=== PATIENT | male | born 1975 | race Hispanic/Latino ===

== ENCOUNTER 2016-12-26 14:51 | Emergency (ER) | payer SELFPAY ==
[~2016-12-26] VITALS: Ht 170.2 cm; Wt 120.0 kg
[~2016-12-26 14:51] MED LIST: AMOXICILLIN500 MG PO; ASPIRIN CHEWABL81 MG PO; CLARITIN10 M1 PO; NITROSTAT0.4 MG SL; NO; TYLENOL # 31 TAB PO; ULTRAM50 M1 PO; ZANTAC150 M1 PO; ZPAK PO
[2016-12-26 15:44] LABS: HEMATOCRIT 47.2 % (39.0-50.0); HEMOGLOBIN 15.6 g/dl (14.0-18.0); IMMATURE GRANULOCYTES 0.4 % (0.0-1.0); MEAN CELL VOLUME 87.9 fL CALC (80.0-100.0); MEAN CORPUSCULAR HGB 29.1 pG CALC (26.0-32.0); MEAN CORPUSCULAR HGB CONC 33.1 g/L CALC (32.0-36.0); NEUT# 4.41 thou/uL (1.82-7.42); RED BLOOD COUNT 5.37 mill/uL (4.70-6.10); RED CELL DISTRI WIDTH 13.1 % (11.5-15.5)
[2016-12-26 15:58] LABS: INTERNATIONAL NORMALIZED RATIO 0.9 RATIO (0.7-1.3); PROTHROMBIN TIME 10.1 SECONDS (9.0-12.5)
[2016-12-26 15:59] LABS: ALBUMIN 4.6 g/dL (3.2-5.0); ALKALINE PHOSPHATASE 132 u/l (38-126); ANION GAP 16 (6-22 (CALC)); BILIRUBIN, TOTAL 0.7 mg/dL (0.0-1.4); BUN 14 mg/dL (9-20); BUN/CREATININE RATIO 15 (12-20 (CALC)); CALCIUM 9.4 mg/dL (8.4-10.2); CARBON DIOXIDE 25 mmol/l (22-30); CHLORIDE 103 mmol/l (95-108); CREATININE 0.9 mg/dL (0.7-1.3); GFR > 60 ML/MIN (>=60 (CALC)); GFR FOR AFR.AMER. > 60 ML/MIN (>=60 (CALC)); GLUCOSE 89 mg/dL (75-110); POTASSIUM 4.2 mmol/l (3.5-5.1); SGOT/AST 26 u/l (17-59); SGPT/ALT 58 u/l (21-72); SODIUM 140 mmol/l (137-146); TOTAL PROTEIN 7.6 g/dL (6.3-8.2)
[2016-12-26 16:10] LABS: MYOGLOBIN 27 ng/mL (0 - 121)
[2016-12-26 17:40] VITALS: BP 117/76
== END 2016-12-26 17:32 | disposition short-term general hospital (02) | DRG 74 ==
LOC: ED 14:51
PROVIDERS: Emergency Medicine
DX: G51.0 Bell's palsy (principal); F17.210 Nicotine dependence, cigarettes, uncomplicated; R53.1 Weakness; Q07.00 Arnold-Chiari syndrome without spina bifida or hydrocephalus; R94.31 Abnormal electrocardiogram [ECG] [EKG]

== ENCOUNTER 2017-05-26 03:17 | Inpatient (IN) | payer SELFPAY ==
[2017-05-26] VITALS (8 sets, daily range): BP systolic 92–118; BP diastolic 47–66
[~2017-05-26] VITALS: Ht 170.2 cm; Wt 117.0 kg
--- NOTE | 2017-05-26 03:20 | NUR ---
PT TO RM 14 VIA EMS
[2017-05-26 03:52] LABS: HEMATOCRIT 46.5 % (39.0-50.0); HEMOGLOBIN 15.8 g/dl (14.0-18.0); IMMATURE GRANULOCYTES 0.4 % (0.0-1.0); MEAN CELL VOLUME 88.7 fL CALC (80.0-100.0); MEAN CORPUSCULAR HGB 30.2 pG CALC (26.0-32.0); NEUT# 10.93 thou/uL (1.82-7.42); RED BLOOD COUNT 5.24 mill/uL (4.70-6.10); RED CELL DISTRI WIDTH 12.9 % (11.5-15.5)
[2017-05-26 04:05] LABS: ALBUMIN 4.5 g/dL (3.2-5.0); ALKALINE PHOSPHATASE 128 u/l (38-126); AMYLASE 47 u/l (30-110); ANION GAP 18 (6-22 (CALC)); BILIRUBIN, TOTAL 0.7 mg/dL (0.0-1.4); BUN 14 mg/dL (9-20); BUN/CREATININE RATIO 16 (12-20 (CALC)); CALCIUM 9.2 mg/dL (8.4-10.2); CARBON DIOXIDE 20 mmol/l (22-30); CHLORIDE 109 mmol/l (95-108); CREATININE 0.9 mg/dL (0.7-1.3); GFR > 60 ML/MIN (>=60 (CALC)); GFR FOR AFR.AMER. > 60 ML/MIN (>=60 (CALC)); GLUCOSE 103 mg/dL (75-110); LIPASE 77 u/l (23-300); POTASSIUM 3.8 mmol/l (3.5-5.1); SGOT/AST 27 u/l (17-59); SGPT/ALT 82 u/l (21-72); SODIUM 142 mmol/l (137-146); TOTAL PROTEIN 7.4 g/dL (6.3-8.2)
--- NOTE | 2017-05-26 04:05 | NUR ---
PT ASKED ME TO CALL HIS FIANCE FOR HIM AND GAVE PERMISSION TO GIVE ALL INFORMATION TO RICHY.
--- NOTE | 2017-05-26 05:05 | NUR ---
DR JI IN TO GO OVER RESULTS AND PLAN OF ADMIT.
--- NOTE | 2017-05-26 05:34 | NUR ---
Admission Note Report Given to: GREYSON ALVARENGA. Transported by: X Wheelchair Stretcher Transported with: X Nurse Transporter X Patent IV O2 Health Information Administrator
--- NOTE | 2017-05-26 06:41 | NUR ---
PATIENT ADMITTED FROM ER VIA STRETCHER WITH ER STAFFIN ATTENDANCE. PATIENT STANDING ON FOR WEIGHT AND THEN ASSISTED TO BED. PATIENT IS AWAKE ALERT AND ORIENTEDX3-ADMITTED FOR ACUTE APPY. PATIENT WITH IV SITE TO LEFT AC WITH IVF NS PATENT AND INFUSING AT 200CC/HR. SITE APPEARS HEALTHY AT THIS TIME. PATIENT INSTRUCTED ON NPO STATUS WELL THE NEED FOR U/A WHEN HE CAN PROVIDE. PATIENT STATES THAT HE CANNOT VOID AT THIS TIME. PATIENT WITH RLQ ABD PAIN-MEDICATED FOR PAIN-9/10 ON PAIN SCALE WITH DILAUDID 1MG IVP. PATIENT DENIES ANY N/V AT THIS TIME. PATIENT STATES THAT HIS LAST BM WAS LAST NIGHT. LIVES WITH S/O. ORIENTED TO ROOM AND SURROUNDINGS. INSTRUCTED ON USE OF NURSE CALL LIGHT SYSTEM AND TV REMOTE. SAFETY PRECAUTIONS REVIEWED WITH PATIENT. CALL LIGHT IN REACH. WILL CONT TO MONITOR.
--- NOTE | 2017-05-26 07:05 | NUR ---
PT ON THE PHONE; DENIES PAIN AT THIS TIME; IVF INFUSING WELL; CALL PENA WITHIN REACH; WILL CONTINUE TO MONITOR.
--- NOTE | 2017-05-26 08:05 | NUR ---
PT A/O X3; RLQ ABD TENDER WITH PALPATATION; PT INSTRUCTED ON NPO STATUS, VERBALIZE UNDERSTANDING OF SAME; CALL PENA WITHIN REACH; WILL CONTINUE TO MONITOR.
[2017-05-26 08:09] LABS: URINE BILIRUBIN - DIPSTICK NEGATIVE (NEGATIVE); URINE BLOOD DIPSTICK NEGATIVE (NEGATIVE); URINE CLARITY CLEAR; URINE COLOR YELLOW; URINE GLUCOSE - DIPSTICK NEGATIVE (NEGATIVE); URINE KETONE NEGATIVE (NEGATIVE); URINE LEUK ESTERASE NEGATIVE (NEGATIVE); URINE NITRITE - DIPSTICK NEGATIVE (Negative); URINE PH 5.5 (4.5-8.0); URINE PROTEIN - DIPSTICK NEGATIVE (NEG-TRACE); URINE SPECIFIC GRAVITY 1.015; URINE UROBILINOGEN - DIPSTICK 0.2 E.U./dL (0.2)
--- NOTE | 2017-05-26 09:45 | NUR ---
RECEIVED BEDSIDE REPORT FROM ADELITA RUBI. PT RESTING IN SEMI FOWLERS. RESPS EVEN AND UNLABORED ON ROOM AIR. MEDICATED FOR ABD PAIN BY ADELITA RUBI. CALL LIGHT WITHIN REACH.
--- NOTE | 2017-05-26 10:51 | NUR ---
TO OR VIA STRETCHER ACCOMPANIED BY JOE RUBI AND TOYIN RUBI.
--- NOTE | 2017-05-26 14:40 | NUR ---
FROM OR VIA STRETCHER ACCOMPANIED BY JOE RUBI. TRANSFERRED TO BED WITH STAND BY ASSIST. RESPS EVEN AND UNLABORED ON ROOM AIR. #20 LAC INFUSING WITHOUT DIFFICULTY, SITE APPEARS HEALTHY. SCD'S TO BILAT LOWER EXTREMITIES. DRESSINGS X3 TO ABD CDI. DENIES PAIN OR DISCOMFORT. ICE CHIPS PROVIDED. ORIENTED TO ROOM AND CALL SYSTEM. SAFETY PRECAUTIONS REINFORCED. BED IN LOWEST POSITION WITH WHEELS LOCKED. CALL LIGHT WITHIN REACH. FAMILY MEMBER AT BEDSIDE. ENCOURAGED PT AND FAMILY TO CALL FOR ANY NEEDS.
--- NOTE | 2017-05-26 16:10 | NUR ---
RESTING IN SEMI FOWLERS, FAMILY AT BEDSIDE. MEDIATED WITH DILAUDID 1MG IVP FOR C/O 8/10 ABD PAIN. HYPOACTIVE BOWEL SOUNDS NOTED X4 QUADS. SCD'S TO BILAT LOWER EXTREMITIES. CALL LIGHT WITHIN REACH. WILL CONTINUE TO MONITOR.
--- NOTE | 2017-05-26 17:10 | NUR ---
MEDICATED WITH ZOFRAN 4MG IVP FOR C/O NAUSEA. FAMILY AT BEDSIDE, CALL LIGHT WITHIN REACH.
--- NOTE | 2017-05-26 18:45 | NUR ---
AMBULATED IN HALLWAY WITH STEADY GAIT. TOLERATED WELL.
--- NOTE | 2017-05-26 19:16 | NUR ---
Discharge instructions given. Patient verbalizes understanding of same. Discharged in stable condition via Wheelchair to Home with family. All belongings sent with pt.
== END 2017-05-26 19:15 | disposition home or self-care (01) | DRG 343 ==
LOC: ED 03:17 → ED-I 04:10 → ED 04:10 → ED-I 04:40 → ED 05:14 → MS2 05:15
PROVIDERS: Emergency Medicine; ADMIT Surgery; ATTEND Surgery
PROC: 0DTJ4ZZ Resection of Appendix, Percutaneous Endoscopic Approach (ICD-10-PCS; principal; 2017-05-26)
DX: K35.80 Unspecified acute appendicitis (principal); F17.210 Nicotine dependence, cigarettes, uncomplicated; Q07.00 Arnold-Chiari syndrome without spina bifida or hydrocephalus; Z87.442 Personal history of urinary calculi
CPT/HCPCS: Q9967

== ENCOUNTER 2017-11-30 11:05 | Emergency (ER) | payer OTHER ==
[~2017-11-30] VITALS: Ht 170.2 cm; Wt 116.4 kg
[2017-11-30 11:52] LABS: URINE BILIRUBIN - DIPSTICK NEGATIVE (NEGATIVE); URINE CLARITY CLEAR; URINE COLOR YELLOW; URINE GLUCOSE - DIPSTICK NEGATIVE (NEGATIVE); URINE KETONE NEGATIVE (NEGATIVE); URINE LEUK ESTERASE NEGATIVE (NEGATIVE); URINE NITRITE - DIPSTICK NEGATIVE (Negative); URINE PROTEIN - DIPSTICK NEGATIVE (NEG-TRACE); URINE SPECIFIC GRAVITY <=1.005; URINE UROBILINOGEN - DIPSTICK 0.2 E.U./dL (0.2)
[2017-11-30 11:54] LABS: COCAINE NEGATIVE (NEGATIVE); METHADONE NEGATIVE (NEGATIVE); TETRAHYDROCANNABIONOL NEGATIVE (NEGATIVE); TRICYLIC ANTIDEPRESSANTS NEGATIVE (NEGATIVE); URINE BLOOD DIPSTICK NEGATIVE (NEGATIVE)
[2017-11-30 11:55] LABS: BARBITURATES NEGATIVE (NEGATIVE); OXCYCODONE NEGATIVE (NEGATIVE)
[2017-11-30 12:01] LABS: HEMATOCRIT 47.9 % (39.0-50.0); HEMOGLOBIN 15.9 g/dl (14.0-18.0); IMMATURE GRANULOCYTES 0.4 % (0.0-1.0); MEAN CELL VOLUME 90.5 fL CALC (80.0-100.0); MEAN CORPUSCULAR HGB 30.1 pG CALC (26.0-32.0); MEAN CORPUSCULAR HGB CONC 33.2 g/L CALC (32.0-36.0); NEUT# 5.74 thou/uL (1.82-7.42); RED BLOOD COUNT 5.29 mill/uL (4.70-6.10); RED CELL DISTRI WIDTH 12.4 % (11.5-15.5)
[2017-11-30 12:16] LABS: ALBUMIN 4.4 g/dL (3.2-5.0); ALKALINE PHOSPHATASE 151 u/l (38-126); ANION GAP 18 (6-22 (CALC)); BILIRUBIN, TOTAL 0.6 mg/dL (0.0-1.4); BUN 15 mg/dL (9-20); BUN/CREATININE RATIO 17 (12-20 (CALC)); CARBON DIOXIDE 24 mmol/l (22-30); CHLORIDE 104 mmol/l (95-108); CREATININE 0.9 mg/dL (0.7-1.3); GFR > 60 ML/MIN (>=60 (CALC)); GFR FOR AFR.AMER. > 60 ML/MIN (>=60 (CALC)); POTASSIUM 4.2 mmol/l (3.5-5.1); SGOT/AST 45 u/l (17-59); SGPT/ALT 60 u/l (21-72); SODIUM 142 mmol/l (137-146); TOTAL PROTEIN 7.5 g/dL (6.3-8.2)
[2017-11-30 12:26] LABS: MYOGLOBIN 31 ng/mL (0 - 121)
[2017-11-30] MEDS ORDERED: NAPROSYN500 MG PO (17:04)
[2017-11-30 17:33] VITALS: BP 121/68
== END 2017-11-30 17:34 | disposition home or self-care (01) | DRG 313 ==
LOC: ED 11:05
PROVIDERS: Emergency Medicine
DX: R07.89 Other chest pain (principal); F17.210 Nicotine dependence, cigarettes, uncomplicated; Q07.00 Arnold-Chiari syndrome without spina bifida or hydrocephalus

== ENCOUNTER 2018-01-27 08:46 | Observation (INO) | payer OTHER ==
[~2018-01-27] VITALS: Ht 170.2 cm; Wt 123.2 kg
[~2018-01-27 08:46] MED LIST changes: +NAPROSYN500 MG PO
--- NOTE | 2018-01-27 08:48 | NUR ---
PT DIRECTLY TO ROOM WITH A STEADY GAIT. PT REPORTS 8/10 LEFT SIDED CHEST PAIN WHILE COMPLETING RESTING STRESS TEST. MD NOTIFIED OF PT STATUS.
[2018-01-27] MEDS ORDERED: ADULT ASPIRIN R81 MG PO (08:59)
[2018-01-27 09:04] LABS: HEMATOCRIT 48.7 % (39.0-50.0); HEMOGLOBIN 16.3 g/dl (14.0-18.0); IMMATURE GRANULOCYTES 0.2 % (0.0-1.0); MEAN CELL VOLUME 90.5 fL CALC (80.0-100.0); MEAN CORPUSCULAR HGB 30.3 pG CALC (26.0-32.0); MEAN CORPUSCULAR HGB CONC 33.5 g/L CALC (32.0-36.0); NEUT# 4.46 thou/uL (1.82-7.42); RED BLOOD COUNT 5.38 mill/uL (4.70-6.10); RED CELL DISTRI WIDTH 12.8 % (11.5-15.5)
[2018-01-27 09:20] LABS: ALBUMIN 4.4 g/dL (3.2-5.0); ALKALINE PHOSPHATASE 125 u/l (38-126); ANION GAP 14 (6-22 (CALC)); BILIRUBIN, TOTAL 0.7 mg/dL (0.0-1.4); BUN 14 mg/dL (9-20); BUN/CREATININE RATIO 16 (12-20 (CALC)); CARBON DIOXIDE 26 mmol/l (22-30); CHLORIDE 104 mmol/l (95-108); CREATININE 0.9 mg/dL (0.7-1.3); GFR > 60 ML/MIN (>=60 (CALC)); GFR FOR AFR.AMER. > 60 ML/MIN (>=60 (CALC)); SGOT/AST 39 u/l (17-59); SGPT/ALT 83 u/l (21-72); SODIUM 141 mmol/l (137-146); TOTAL PROTEIN 7.8 g/dL (6.3-8.2)
[2018-01-27 09:32] LABS: MYOGLOBIN 50 ng/mL (0 - 121)
--- NOTE | 2018-01-27 09:35 | NUR ---
PATIENT RATES CHEST PAIN 6/10. REPORTS HEADACHE, MD INFORMED. AWAITING ORDERS.
--- NOTE | 2018-01-27 09:43 | NUR ---
PATIENT AMBULATES TO BATHROOM WITH STEADY GAIT.
--- NOTE | 2018-01-27 10:09 | NUR ---
MD AT BEDSIDE TO DISCUSS RESULTS AND PLAN OF CARE.
--- NOTE | 2018-01-27 10:13 | NUR ---
PATIENT REPORTS HEAD ACHE AND CHEST PAIN 6/10 AT THIS TIME. ORANGE JUICE PROVIDED PER PATIENT REQUEST.
--- NOTE | 2018-01-27 10:37 | NUR ---
ATTEMPT MADE TO CALL REPORT. SPOKE TO NILDA [facility] NURSE IN PATIENT ROOM WILL HAVE NURSE CALL FOR REPORT.
--- NOTE | 2018-01-27 11:02 | NUR ---
ATTEMPT MADE TO CALL REPORT SPOKE TO NILDA REPORTS NURSE WITH PATIENT. WILL CALL BACK.
--- NOTE | 2018-01-27 11:10 | NUR ---
PATIENT REPORTS CHEST PAIN AND HEADACHE 4/10 AT THIS TIME. UPDATED ON WAIT TIME, VERBAL UNDERSTANDING, SO AT BEDSIDE.
--- NOTE | 2018-01-27 11:18 | NUR ---
REPORT GIVEN TO GREYSON PORRAS.
--- NOTE | 2018-01-27 11:25 | NUR ---
PT ARRIVED TO FLOOR VIA STRETCHER ACCOMPANIED BY GREYSON DESAI. PT'S FIANCE PRESENT. PT AMBULATES W/ STEADY GAIT. REPORTS CHEST PAIN, LEFT SIDED, 4 ON SCALE OF 0-10. IMPROVED SINCE MEDICATION IN ED. PAIN WORSE WHEN LAYING FLAT, ACCOMPANIED BY SOB. O2 @ 2L VIA NC APPLIED. PLAN OF CARE DISCUSSED. REPORTING OF CONCERNS ENCOURAGED. CALL LIGHT REVIEWED AND IN REACH.
--- NOTE | 2018-01-27 11:25 | NUR ---
PATIENT TRANSPORTED TO [facility] WITH TELE VIA STRETCHER. BEDSIDE REPORT GIVEN TO GREYSON PORRAS. CARE RELINQUISHED.
[2018-01-27 11:39] VITALS: BP 102/69
[2018-01-27 16:17] VITALS: BP 96/62
[2018-01-27 19:10] VITALS: BP 123/63
--- NOTE | 2018-01-27 20:00 | NUR ---
BEDSIDE REPORT RECEIVED FROM GREYSON PORRAS. PT RESTING IN BED ON LEFT SIDE WITH FAMILY AT BEDSIDE. C/O LEFT CHEST PAIN 11/27 CURRENTLY; NO CHANGE OR WORSENING SINCE EARLIER. RESPIRATIONS EVEN AND UNLABORED ON OXYGEN VIA NC. TELE ON. PLAN OF CARE DISCUSSED. PT ENCOURAGED TO VERBALZIE CONCERNS. STATES UNDERSTANDING. SAFETY MEASURES IN PLACE. CALL LIGHT WITHIN REACH.
[2018-01-28 00:04] VITALS: BP 94/59
--- NOTE | 2018-01-28 00:31 | NUR ---
PT ASLEEP AT THIS TIME WITH NO SIGNS OF DISTRESS. ONE FAMILY MEMBER REMAINS AT BEDSIDE. RESPIRATIONS EVEN AND UNLABORED ON ROOM AIR; REMOVED OXYGEN AND SATURATION REMAINS ABOVE 90%. IV SITE APPEARS HEALTHY AND FLUSHES. INDPENDENT IN ROOM. SAFETY MEASURES IN PLACE. CALL LIGHT WITHIN REACH.
[2018-01-28 04:10] VITALS: BP 101/51
--- NOTE | 2018-01-28 04:22 | NUR ---
PT ASLEEP AT THIS TIME WITH NO SIGNS OF DISTRESS. NO ACUTE CHANGES IN CONDITION THROUGHOUT THE NIGHT OR WORSENING OF CHEST PAIN. SAFETY MEASURES IN PLACE. CALL LIGHT WITHIN REACH.
--- NOTE | 2018-01-28 07:00 | NUR ---
RECEIVED BEDSIDE REPORT FROM TEVIN RUBI. AMBULATED TO BATHROOM WITH STEADY GAIT. RESPS EVEN AND UNLABORED ON ROOM AIR, TELE MONITOR IN PLACE. DENIES PAIN OR DISCOMFORT. PLAN OF CARE DISCUSSED. SAFETY PRECAUTIONS REINFORCED. VISITOR AT BEDSIDE. BED IN LOWEST POSITION WITH WHEELS LOCKED. CALL LIGHT WITHIN REACH. ENCOURAGED PT AND VISITOR TO CALL FOR ANY NEEDS.
[2018-01-28 07:20] VITALS: BP 105/73
[2018-01-28 10:32] LABS: CHOLESTEROL HDL RATIO 5.7 (<4.4 (CALC))
[2018-01-28 11:18] VITALS: BP 124/75
--- NOTE | 2018-01-28 12:00 | NUR ---
SITTING ON EDGE OF BED, RESPS EVEN AND UNLABORED ON ROOM AIR, TELE MONITOR IN PLACE. DENIES PAIN OR DISCOMFORT. FAMILY AT BEDSIDE. CALL LIGHT WITHIN REACH. ENCOURAGED PT OR FAMILY TO CALL FOR ANY NEEDS.
[2018-01-28 15:40] VITALS: BP 99/54
--- NOTE | 2018-01-28 16:52 | NUR ---
IV site discontinued, cath intact. No edema , no redness, voices no discomfort.
--- NOTE | 2018-01-28 17:01 | NUR ---
Discharge instructions given. Patient verbalizes understanding of same. Discharged in stable condition via Wheelchair to Home with family. All belongings sent with pt.
== END 2018-01-28 16:57 | disposition home or self-care (01) | DRG 313 ==
LOC: ED 08:46 → ED-I 09:50 → ED 10:05 → MS2 10:06
PROVIDERS: Family Medicine; Nurse Practitioner Family; ADMIT Internal Medicine; ATTEND Internal Medicine
DX: R07.89 Other chest pain (principal); G93.5 Compression of brain; Z68.41 Body mass index [BMI] 40.0-44.9, adult; F17.210 Nicotine dependence, cigarettes, uncomplicated; K21.9 Gastro-esophageal reflux disease without esophagitis; M94.0 Chondrocostal junction syndrome [Tietze]; Z87.442 Personal history of urinary calculi
CPT/HCPCS: A9502; G0378

== ENCOUNTER 2018-03-18 20:41 | Emergency (ER) | payer OTHER ==
[~2018-03-18 20:41] MED LIST changes: +ADULT ASPIRIN R81 MG PO
== END 2018-03-18 21:25 | disposition left against medical advice (07) | DRG 951 ==
LOC: ED 20:41 → LWOBS 21:25
DX: Z91.19 Patient's noncompliance with other medical treatment and regimen (principal)

== ENCOUNTER 2018-06-15 18:35 | Observation (INO) | payer OTHER ==
[~2018-06-15] VITALS: Ht 170.2 cm; Wt 121.8 kg
[2018-06-15] MEDS ORDERED: CHOLESTEROL PILL (18:48)
--- NOTE | 2018-06-15 18:48 | NUR ---
AMB TO ROOM 12 WITH STEADY GAIT.
--- NOTE | 2018-06-15 19:04 | NUR ---
XRAYS COMPLETED. VISITOR AT BEDSIDE
[2018-06-15 19:23] LABS: URINE BILIRUBIN - DIPSTICK NEGATIVE (NEGATIVE); URINE BLOOD DIPSTICK NEGATIVE (NEGATIVE); URINE COLOR YELLOW; URINE GLUCOSE - DIPSTICK NEGATIVE (NEGATIVE); URINE KETONE NEGATIVE (NEGATIVE); URINE LEUK ESTERASE NEGATIVE (NEGATIVE); URINE NITRITE - DIPSTICK NEGATIVE (Negative); URINE PROTEIN - DIPSTICK TRACE mg/dL (NEG-TRACE); URINE SPECIFIC GRAVITY >=1.030
[2018-06-15 19:24] LABS: URINE CLARITY CLEAR
[2018-06-15 19:27] LABS: BARBITURATES NEGATIVE (NEGATIVE); COCAINE NEGATIVE (NEGATIVE); HEMOGLOBIN 15.8 g/dl (14.0-18.0); IMMATURE GRANULOCYTES 0.4 % (0.0-5.0); MEAN CELL VOLUME 90.4 fL CALC (80.0-100.0); MEAN CORPUSCULAR HGB 30.4 pG CALC (26.0-32.0); MEAN CORPUSCULAR HGB CONC 33.6 g/L CALC (32.0-36.0); METHADONE NEGATIVE (NEGATIVE); NEUT# 5.24 thou/uL (1.82-7.42); OXCYCODONE NEGATIVE (NEGATIVE); RED BLOOD COUNT 5.2 mill/uL (4.70-6.10); RED CELL DISTRI WIDTH 12.8 % (11.5-15.5); TETRAHYDROCANNABIONOL NEGATIVE (NEGATIVE); TRICYLIC ANTIDEPRESSANTS NEGATIVE (NEGATIVE)
[2018-06-15 19:44] LABS: ALBUMIN 4.7 g/dL (3.2-5.0); ALKALINE PHOSPHATASE 149 u/l (38-126); ANION GAP 18 (6-22 (CALC)); BILIRUBIN, TOTAL 0.6 mg/dL (0.0-1.4); BUN 16 mg/dL (9-20); BUN/CREATININE RATIO 17 (12-20 (CALC)); CARBON DIOXIDE 22 mmol/l (22-30); CHLORIDE 109 mmol/l (95-108); CREATININE 0.9 mg/dL (0.7-1.3); GFR > 60 ML/MIN (>=60 (CALC)); GFR FOR AFR.AMER. > 60 ML/MIN (>=60 (CALC)); POTASSIUM 3.5 mmol/l (3.5-5.1); SGOT/AST 36 u/l (17-59); SGPT/ALT 73 u/l (21-72); SODIUM 145 mmol/l (137-146)
[2018-06-15 19:54] LABS: MYOGLOBIN 45 ng/mL (0 - 121)
--- NOTE | 2018-06-15 20:30 | NUR ---
PT RESTING. VSS. ADVISED OF WAIT TIME. IS CALLING TO BRING HIM FOOD.
--- NOTE | 2018-06-15 21:23 | NUR ---
REPORT TO GREYSON ABARCA ON MED SURG. PT RESTING. VSS. NAD. AT BEDSIDE. PT EATING FOOD BROUGHT IN BY .
[2018-06-15 21:40] VITALS: BP 119/76
--- NOTE | 2018-06-15 21:40 | NUR ---
PT ARRIVED TO UNIT VIA STRETCHER WITH ER STAFF. AMBULATED TO BED INDEPENDENTLY. FAMILY AT BEDSIDE. C/O LEFT SIDED INTERMITTENT CHEST PAIN 02/27. RESPIRATIONS EVEN AND UNLABORED ON ROOM AIR. VS STABLE. ORIENTED TO ROOM AND CALL LIGHT SYSTEM. PLAN OF CARE DISCUSSED. PT ENCOURAGED TO VERABLIZE CONCERNS. STATES UNDERSTANDING. SAFETY MEASURES IN PLACE. CALL LIGHT WITHIN REACH.
[2018-06-15] MEDS ORDERED: LIPITOR40 M1 PO (23:14)
[2018-06-16 00:01] VITALS: BP 129/75
--- NOTE | 2018-06-16 00:27 | NUR ---
PT [id number] THAT HIS CHEST PAIN HAD INCREASED TO AN 8/10 AND HE APPEARS MORE ANXIOUS. NOTIFED. NEW ORDERS FOR TORADOL X 1 AND ATIVAN PO X 1; MEDICATIONS ADMINISTERED WITH GOOD EFFECT. PT STATES THAT THE CHEST PAIN IS BACK TO A 6/10 AND NOT SHARP. HE SEEMS MORE RELAXED. BLOOD PRESSURE WNL. ONLY REQUEST AT THIS TIME IS FOR MORE PILLOWS. IV SITE APPEARS HEALTHY AND FLUSHES. PT IS INDEPENDENT IN ROOM. SAFETY MEASURES IN PLACE. CALL LIGHT WITHIN REACH.
[2018-06-16 03:51] VITALS: BP 97/66
--- NOTE | 2018-06-16 03:54 | NUR ---
PT ASLEEP AT THIS TIME WITH NO SIGNS OF DISTRESS. RESPIRATIONS EVEN AND UNLABORED ON ROOM AIR. CALL LIGHT WITHIN REACH.
--- NOTE | 2018-06-16 07:20 | NUR ---
REPORT RECEIVED FROM GREYSON ABARCA;PT APPEARS TO BE SLEEPING IN SEMI FOWLERS POSITION;NO S/S OF DISTRESS NOTED;RESPIRATIONS APPEAR EVEN AND UNLABORED ON RA;TELE MONITOR IN PLACE;FALL PRECAUTIONS NOTED WITH BED IN THE LOWEST POSITION AND CALL LIGHT IN REACH;WILL CONTINUE TO MONITOR
--- NOTE | 2018-06-16 09:15 | NUR ---
PT RESTING IN SEMI FOWLERS POSITION;ALERT AND ORIENTED X3;PT REPORTS MINIMAL LEFT SIDED CHEST DISCOMFORT,ENCOURAGED REPOSITION;PAIN SCALE AND REPORTING EDUCATED;VS OBTAINED AND ASSESSMENT COMPLETED;RESPIRATIONS EVEN AND UNLABORED ON RA,CLEAR LUNG SOUNDS NOTED;ABDOMEN DISTENDED/SOFT ON PALPATION AND ACTIVE IN ALL 4 QUADRANTS;SKIN INTACT;TELE MONITOR IN PLACE;#20G TO RAC FLUSHED AND PATENT,SITE APPEARS HEALTHY;GIO EVELIO PROVIDED PER REQUEST;PT DENIES ANY ADDITONAL NEEDS AT THIS TIME AND IS INSTRUCTED TO CALL FOR ASSISTANCE IF NEEDED;CALL LIGHT IN REACH;WILL CONTINUE TO MONITOR
[2018-06-16 09:16] VITALS: BP 95/62
[2018-06-16 11:55] VITALS: BP 131/82
--- NOTE | 2018-06-16 12:06 | NUR ---
PT OOB RESTING IN RECLINER;RESPIRATIONS EVEN AND UNLABORED ON RA;TELE MONITOR IN PLACE;PT REPORTS SLIGHT CHEST PAIN;ONE TIME XANAX 0.5MG PO ADMINISTERED PER ORDER;PT DENIES ANY OTHER CURRENT NEEDS;CALL LIGHT IN REACH;WILL CONTINUE TO MONITOR
--- NOTE | 2018-06-16 15:40 | NUR ---
Discharge instructions given. Patient verbalizes understanding of same. Discharged in stable condition via Ambulatory to Home with family. All belongings sent with pt.
--- NOTE | 2018-06-16 15:40 | NUR ---
ALL DISCHARGE INSTRUCTIONS PROVIDED AT THIS TIME;PT ENCOURAGED TO FOLLOW UP WITH PCP AND LIMIT STRESS;ALL QUESTIONS ANSWERED;IV SITE REMOVED WITH CATHETER INTACT;PT DENIES ANY OTHER NEEDS AND REFUSES WHEELCHAIR FOR DISCHARGE
== END 2018-06-16 15:40 | disposition home or self-care (01) | DRG 313 ==
LOC: ED 18:35 → ED-I 20:07 → ED 21:03 → MS2 21:04
PROVIDERS: Emergency Medicine; ADMIT Internal Medicine; ATTEND Internal Medicine
DX: R07.9 Chest pain, unspecified (principal); Z68.41 Body mass index [BMI] 40.0-44.9, adult; Q07.00 Arnold-Chiari syndrome without spina bifida or hydrocephalus; F41.9 Anxiety disorder, unspecified; E66.3 Overweight; F17.210 Nicotine dependence, cigarettes, uncomplicated; Z87.442 Personal history of urinary calculi; Z63.8 Other specified problems related to primary support group; Z82.41 Family history of sudden cardiac death
CPT/HCPCS: G0378

== ENCOUNTER 2018-09-20 18:29 | Emergency (ER) | payer OTHER ==
[~2018-09-20] VITALS: Ht 170.2 cm; Wt 123.0 kg
[~2018-09-20 18:29] MED LIST changes: +CHOLESTEROL PILL; +LIPITOR40 M1 PO
[2018-09-20 20:45] VITALS: BP 119/79
== END 2018-09-20 20:45 | disposition home or self-care (01) | DRG 563 ==
LOC: ED 18:29
PROC: 2W3LX1Z Immobilization of Right Lower Extremity using Splint (ICD-10-PCS; principal; 2018-09-20)
DX: S93.601A Unspecified sprain of right foot, initial encounter (principal); X50.1XXA Overexertion from prolonged static or awkward postures, initial encounter; Y93.01 Activity, walking, marching and hiking; Y92.009 Unspecified place in unspecified non-institutional (private) residence as the place of occurrence of the external cause

== ENCOUNTER 2018-09-24 05:01 | Emergency (ER) | payer SELFPAY ==
[~2018-09-24] VITALS: Ht 170.2 cm; Wt 122.7 kg
[2018-09-24 05:46] LABS: HEMATOCRIT 45.9 % (39.0-50.0); HEMOGLOBIN 15.5 g/dl (14.0-18.0); IMMATURE GRANULOCYTES 0.3 % (0.0-5.0); MEAN CELL VOLUME 89.6 fL CALC (80.0-100.0); MEAN CORPUSCULAR HGB 30.3 pG CALC (26.0-32.0); MEAN CORPUSCULAR HGB CONC 33.8 g/L CALC (32.0-36.0); NEUT# 3.58 thou/uL (1.82-7.42); RED BLOOD COUNT 5.12 mill/uL (4.70-6.10); RED CELL DISTRI WIDTH 12.3 % (11.5-15.5)
[2018-09-24 05:58] LABS: ALBUMIN 4.1 g/dL (3.2-5.0); ALKALINE PHOSPHATASE 126 u/l (38-126); ANION GAP 13 (6-22 (CALC)); BILIRUBIN, TOTAL 0.4 mg/dL (0.0-1.4); BUN 12 mg/dL (9-20); BUN/CREATININE RATIO 14 (12-20 (CALC)); CARBON DIOXIDE 25 mmol/l (22-30); CHLORIDE 105 mmol/l (95-108); CREATININE 0.9 mg/dL (0.7-1.3); GFR > 60 ML/MIN (>=60 (CALC)); GFR FOR AFR.AMER. > 60 ML/MIN (>=60 (CALC)); POTASSIUM 4.1 mmol/l (3.5-5.1); SGOT/AST 28 u/l (17-59); SODIUM 139 mmol/l (137-146); TOTAL PROTEIN 7.2 g/dL (6.3-8.2)
[2018-09-24 06:10] LABS: MYOGLOBIN 38 ng/mL (0 - 121)
[2018-09-24] MEDS ORDERED: TORADOL PO (06:24)
[2018-09-24] MEDS ORDERED: TUSSIONEX1 ML PO (06:24)
[2018-09-24 06:47] VITALS: BP 106/61
== END 2018-09-24 06:50 | disposition home or self-care (01) | DRG 866 ==
LOC: ED 05:01
PROVIDERS: Family Medicine
DX: B34.9 Viral infection, unspecified (principal); R07.89 Other chest pain; F17.210 Nicotine dependence, cigarettes, uncomplicated; Q07.00 Arnold-Chiari syndrome without spina bifida or hydrocephalus

== ENCOUNTER 2019-01-17 00:05 | Emergency (ER) | payer OTHER ==
[~2019-01-17] VITALS: Ht 170.2 cm; Wt 120.2 kg
[~2019-01-17 00:05] MED LIST changes: +TORADOL PO; +TUSSIONEX1 ML PO
[2019-01-17] MEDS ORDERED: MEDDOSEPAK PO (01:31)
[2019-01-17] MEDS ORDERED: BENADRYL 50MG C50 MG PO (01:31)
[2019-01-17] MEDS ORDERED: PEPCID20 MG PO (01:31)
[2019-01-17 01:50] VITALS: BP 93/67
== END 2019-01-17 01:50 | disposition home or self-care (01) | DRG 607 ==
LOC: ED 00:05
DX: L50.0 Allergic urticaria (principal); F17.200 Nicotine dependence, unspecified, uncomplicated

== ENCOUNTER 2019-05-10 04:22 | Emergency (ER) | payer OTHER ==
[~2019-05-10] VITALS: Ht 170.2 cm; Wt 122.2 kg
[~2019-05-10 04:22] MED LIST changes: +BENADRYL 50MG C50 MG PO; +MEDDOSEPAK PO; +PEPCID20 MG PO
[2019-05-10] MEDS ORDERED: CLARITIN10 M1 PO (05:40)
[2019-05-10] MEDS ORDERED: ZITHROMAX250 MG PO (05:40)
[2019-05-10] MEDS ORDERED: ROBITUSSIN AC10 ML PO (05:40)
[2019-05-10 06:00] VITALS: BP 107/68
== END 2019-05-10 06:00 | disposition home or self-care (01) | DRG 153 ==
LOC: ED 04:22
DX: J06.9 Acute upper respiratory infection, unspecified (principal); F17.200 Nicotine dependence, unspecified, uncomplicated

== ENCOUNTER 2019-12-15 | Emergency (ER) | payer OTHER ==
[~2019-12-15] MED LIST changes: +ROBITUSSIN AC10 ML PO; +ZITHROMAX250 MG PO
[2019-12-15] MEDS ORDERED: VOLTAREN1%GEL TOP ×2 (11:01)
[2020-03-14] MEDS ORDERED: LO-DOSE ASA81 MG PO (10:03)
== END 2019-12-15 11:05 | disposition home or self-care (01) ==
DX: S86.912A Strain of unspecified muscle(s) and tendon(s) at lower leg level, left leg, initial encounter (principal); F17.210 Nicotine dependence, cigarettes, uncomplicated; W19.XXXA Unspecified fall, initial encounter

== ENCOUNTER 2020-03-12 20:33 | Inpatient (IN) | payer OTHER ==
[~2020-03-12] VITALS: Ht 170.2 cm; Wt 119.6 kg
[~2020-03-12 20:33] MED LIST changes: +VOLTAREN1%GEL TOP
--- NOTE | 2020-03-12 20:53 | NUR ---
PT. WITH C/O WORKING OUTSIDE ALL DAY AND THEN DEVELOPING CHEST PAIN AND WEAKNESS. TO ROOM 14.
--- NOTE | 2020-03-12 21:10 | NUR ---
PATIENT TAKEN IMMEDIATELY TO CT FOR EXAM, TELE NEURO WITH PATIENT
[2020-03-12 21:26] LABS: GFR > 60 ML/MIN (>=60 (CALC)); GFR FOR AFR.AMER. > 60 ML/MIN (>=60 (CALC))
[2020-03-12 21:30] LABS: HEMATOCRIT 45.2 % (39.0-50.0); HEMOGLOBIN 15.2 g/dl (14.0-18.0); IMMATURE GRANULOCYTES 0.5 % (0.0-5.0); MEAN CELL VOLUME 88.8 fL CALC (80.0-100.0); MEAN CORPUSCULAR HGB 29.9 pG CALC (26.0-32.0); MEAN CORPUSCULAR HGB CONC 33.6 g/dL CAL (32.0-36.0); NEUT# 5.83 thou/uL (1.82-7.42); RED BLOOD COUNT 5.09 mill/uL (4.70-6.10); RED CELL DISTRI WIDTH 13.2 % (11.5-15.5)
[2020-03-12 21:31] LABS: URINE BILIRUBIN - DIPSTICK NEGATIVE (NEGATIVE); URINE BLOOD DIPSTICK NEGATIVE (NEGATIVE); URINE COLOR YELLOW; URINE GLUCOSE - DIPSTICK NEGATIVE (NEGATIVE); URINE KETONE NEGATIVE (NEGATIVE); URINE LEUK ESTERASE NEGATIVE (NEGATIVE); URINE NITRITE - DIPSTICK NEGATIVE (Negative); URINE PH 5.5 (4.5-8.0); URINE PROTEIN - DIPSTICK NEGATIVE (NEG-TRACE); URINE SPECIFIC GRAVITY >=1.030; URINE UROBILINOGEN - DIPSTICK 0.2 E.U./dL (0.2)
[2020-03-12 21:47] LABS: ACT PARTIAL THROMBO TIME 26.4 SECONDS (20.0-32.5); PROTHROMBIN TIME 10.1 SECONDS (9.0-12.5)
[2020-03-12 21:50] LABS: ALBUMIN 4.6 g/dL (3.2-5.0); ALKALINE PHOSPHATASE 123 u/l (38-126); AMYLASE 47 u/l (30-110); ANION GAP 14 (6-22 (CALC)); BILIRUBIN, TOTAL 0.4 mg/dL (0.0-1.4); BUN 19 mg/dL (9-20); BUN/CREATININE RATIO 16 (12-20 (CALC)); CARBON DIOXIDE 22 mmol/l (22-30); CHLORIDE 107 mmol/l (95-108); CPK 247 u/l (52-200); CREATININE 1.1 mg/dL (0.7-1.3); ETHYL ALCOHOL 0 mg/dl (0-30); GFR > 60 ML/MIN (>=60 (CALC)); GFR FOR AFR.AMER. > 60 ML/MIN (>=60 (CALC)); LIPASE 87 u/l (23-300); MAGNESIUM 2.2 mg/dL (1.6-2.3); POTASSIUM 3.9 mmol/l (3.5-5.1); SGOT/AST 32 u/l (17-59); SODIUM 139 mmol/l (137-146); TOTAL PROTEIN 7.5 g/dL (6.3-8.2)
[2020-03-12 21:57] LABS: MYOGLOBIN 103 ng/mL (0 - 121)
--- NOTE | 2020-03-12 22:10 | NUR ---
PATIENT RESTING QUIETLY, NO C/O PAIN OR DISOCMFORT, NO S/S OF DISTRESS NOTED, RESPIRATIONS EVEN AND UNLABORED, AWAITING DIAGNOSTIC RESULTS.
--- NOTE | 2020-03-12 23:30 | NUR ---
PATIENT AWAITING INPATIENT BED, LIGHTS DIMMED FOR COMFORT,NO C/OPAIN OR DISCOMFORT, NO S/S OF DISTRESSNOTED, RESPIRATIONS EVEN AND UNALBORED.
--- NOTE | 2020-03-13 00:30 | NUR ---
PATIENT SLEEPING, VITALS WITHING NORMAL LIMITS, NO C/O PAIN OR DISCOMFORT.
--- NOTE | 2020-03-13 01:30 | NUR ---
PATIENT RESTING QUIETLY, NO C/O PAIN OR DISCOMFRT, NO S/S OF DISTRESS NOTED, RESPIRATIONS EVEN AND UNALBORED, AWAITING INPATIENT BED.
--- NOTE | 2020-03-13 02:30 | NUR ---
PATIENT AWAITING INPATIENT BED, RESTING QUIETLY WITH EYES CLOSED.
[2020-03-13 03:29] LABS: HEMOGLOBIN 13.5 g/dl (14.0-18.0); IMMATURE GRANULOCYTES 0.3 % (0.0-5.0); MEAN CELL VOLUME 89.9 fL CALC (80.0-100.0); MEAN CORPUSCULAR HGB 29.6 pG CALC (26.0-32.0); MEAN CORPUSCULAR HGB CONC 32.9 g/dL CAL (32.0-36.0); NEUT# 3.77 thou/uL (1.82-7.42); RED BLOOD COUNT 4.56 mill/uL (4.70-6.10); RED CELL DISTRI WIDTH 13.4 % (11.5-15.5)
--- NOTE | 2020-03-13 03:29 | NUR ---
PATIENT C/O HEADACHE, MEDICATED FOR PAIN PER PHYSICIAN ORDER AT PATIENT REQUEST. NO S/S OF DISTRESS, RESPIRATIONS EVEN AND UNALBORED.
--- NOTE | 2020-03-13 03:30 | NUR ---
PATIENT AWAITING INPATIENT BED.
[2020-03-13 03:44] LABS: ANION GAP 11 (6-22 (CALC)); BUN 18 mg/dL (9-20); BUN/CREATININE RATIO 20 (12-20 (CALC)); CALCULATED LDLCHOLESTEROL 111 mg/dL (62-129 (CALC)); CARBON DIOXIDE 22 mmol/l (22-30); CHLORIDE 109 mmol/l (95-108); CHOLESTEROL HDL RATIO 5.2 (<4.4 (CALC)); CREATININE 0.9 mg/dL (0.7-1.3); GFR > 60 ML/MIN (>=60 (CALC)); GFR FOR AFR.AMER. > 60 ML/MIN (>=60 (CALC)); HDL CHOLESTEROL 33 mg/dL (>=40); POTASSIUM 3.7 mmol/l (3.5-5.1); SODIUM 138 mmol/l (137-146); TOTAL CHOLESTEROL 170 mg/dl (0-199); TOTAL TRIGLYCERIDES 135 mg/dl (30-149); VLDL CHOLESTROL 27 mg/dl (5-56 (CALC))
--- NOTE | 2020-03-13 04:30 | NUR ---
LIGHTS DIMMED, PATIENT VOICES NO COMPLAINTS, AWAITING INPATIENT BED.
--- NOTE | 2020-03-13 05:28 | NUR ---
PATIENT EASILY AROUSABLE, NO C/O PAIN OR DISCOMFRT,NO S/S OF DISTRESS, RESPIRATIONS EVEN AND UNLABORED, EMPTIED 350CC DARK YELLOW URINE FROM URINAL, INITIATED FLUID BOLUS FOR BP SUPPORT
--- NOTE | 2020-03-13 07:18 | NUR ---
PT ALERT AND ORIENTED X3. FACILA DROOP ON RIGHT MINIMAL RIGHT LEG SWELLING NTOED. PT C/O HEADACHE. PT STATES HE FEELS BETTER THIS AM THOUGH CONTINUES TO C/O WEAKNESS GENERALIZED.
--- NOTE | 2020-03-13 08:46 | NUR ---
PT DENIES COMPLAINTS. NEURO'S UNCHANGED FROM PREVIOUS ASSESMENT. PT ABLE TO EAT 50% OF BREAKFAST WITHOUT DIFFICULTY.
--- NOTE | 2020-03-13 10:37 | NUR ---
PT DENIES COMPLAINTS. RESPS EVEN, UNALBBORED. NEURO'S UNCHANGED
--- NOTE | 2020-03-13 11:20 | NUR ---
PT ARRIVED FROM ER VIA STRETCHER. PT WALKED TO BED, ALERT AND ORIENTED, FOLLOWED COMMANDS, MOVES ALL EXTREMITES. AFEBRILE, DENIES PAIN OR DISCOMFORT AT THIS TIME. NIH SCORE OF 1- SEE PROCESS INTERVENTIONS FOR FULL ASSESSMENT.
--- NOTE | 2020-03-13 12:44 | NUR ---
DR SY AT BEDSIDE, COVID 19 SWAB AND LAB ORDERED.
[2020-03-13 12:49] VITALS: BP 114/63
--- NOTE | 2020-03-13 15:30 | NUR ---
PT SWAB SPECIMEN TAKEN, LAB CALLED FOR PICKUP.
--- NOTE | 2020-03-13 16:00 | NUR ---
PT ALERT AND ORIENTEDX4, MOVES ALL EXTREMITIES. SLIGHT FACIAL ASYMETRY, PT HAS HX OF BELLS PALSY IN 2018. DENIES PAIN OR DISCOMFORT AT THIS TIME. CALL LIGHT WITHIN REACH.
[2020-03-13 17:17] VITALS: BP 94/58
--- NOTE | 2020-03-13 18:00 | NUR ---
PT UP TO BATHROOM AT THIS TIME.
[2020-03-13 19:00] VITALS: BP 116/60
--- NOTE | 2020-03-13 19:00 | NUR ---
BEDRESTING. WATCHING TV. DENIES STROKE S/S AND SAID THAT HE IS READY TO GO HOME
[2020-03-13 20:00] VITALS: BP 86/47
[2020-03-13 21:00] VITALS: BP 101/60
--- NOTE | 2020-03-13 21:00 | NUR ---
BEDRESTING. WATCHING TV. NO COUGH OR DISTRESS NOTED
[2020-03-13 22:00] VITALS: BP 97/51
--- NOTE | 2020-03-13 22:06 | NUR ---
BEDRESTING EYES CLOSED. NO DISTRESS NOTED
--- NOTE | 2020-03-13 23:49 | NUR ---
BEDRESTING. RESP EVEN AND NONLABORED. NO DISTRESS NOTED
[2020-03-14] VITALS (8 sets, daily range): BP systolic 85–8111; BP diastolic 43–78
--- NOTE | 2020-03-14 01:30 | NUR ---
BEDRESTING. RESP EVEN AND NONLABORED. NO DISTRESS NOTED
--- NOTE | 2020-03-14 03:00 | NUR ---
BEDRESTING. RESP EVEN AND NONLBAORED. NO DISTRESS NOTED
--- NOTE | 2020-03-14 04:48 | NUR ---
SNOORING. RESP DEEP AND EVEN. SBP IN 80'S BUT MEAN IN 60'S. ONCE AWAKENED, AND B/P IS RETAKEN, B/P RISES.
[2020-03-14 05:58] LABS: HEMATOCRIT 42.6 % (39.0-50.0); HEMOGLOBIN 14.1 g/dl (14.0-18.0); IMMATURE GRANULOCYTES 0.3 % (0.0-5.0); MEAN CELL VOLUME 89.7 fL CALC (80.0-100.0); MEAN CORPUSCULAR HGB 29.7 pG CALC (26.0-32.0); MEAN CORPUSCULAR HGB CONC 33.1 g/dL CAL (32.0-36.0); NEUT# 2.79 thou/uL (1.82-7.42); RED BLOOD COUNT 4.75 mill/uL (4.70-6.10); RED CELL DISTRI WIDTH 13.2 % (11.5-15.5)
--- NOTE | 2020-03-14 06:07 | NUR ---
BLOOD DRAWN BY LAB-TOLERATED WELL. DOES NOT GOWN ON-HAS SHORTS ON. STATES FEELS LIKE GOWN IS CHOKING HIM. INFORMED OF MRI ORDER. SAID THAT HE NEED PREMEDICATION PRIOR TO TEST
[2020-03-14 06:22] LABS: ALBUMIN 3.7 g/dL (3.2-5.0); ALKALINE PHOSPHATASE 107 u/l (38-126); ANION GAP 9 (6-22 (CALC)); BUN 12 mg/dL (9-20); BUN/CREATININE RATIO 17 (12-20 (CALC)); C-REACTIVE PROTEIN 0.8 mg/dL (0-0.9); CARBON DIOXIDE 24 mmol/l (22-30); CHLORIDE 108 mmol/l (95-108); CREATININE 0.7 mg/dL (0.7-1.3); GFR > 60 ML/MIN (>=60 (CALC)); GFR FOR AFR.AMER. > 60 ML/MIN (>=60 (CALC)); POTASSIUM 4.2 mmol/l (3.5-5.1); SGOT/AST 31 u/l (17-59); SODIUM 136 mmol/l (137-146); TOTAL PROTEIN 6.4 g/dL (6.3-8.2)
[2020-03-14 06:23] LABS: BILIRUBIN, TOTAL 0.6 mg/dL (0.0-1.4)
--- NOTE | 2020-03-14 06:45 | NUR ---
REPORT RECEIVED FROM KHUSHBOO RUBI. CARE ASSUMED.
--- NOTE | 2020-03-14 06:49 | NUR ---
REPORT TO ARMINDA RUBI. BEDRESTING. TO HACE MRI OF BRAIN TODAY
--- NOTE | 2020-03-14 07:15 | NUR ---
PT SITTING UP ON SIDE OF BED. PT IS ALERT AND ORIENTED X3. SHIFT ASSESSMENT COMPLETED AT THIS TIME. NIH 0 AT THIS TIME. IV PATENT X2. CALL LIGHT IN REACH. WILL CONTINUE TO MONIOTR.
--- NOTE | 2020-03-14 07:40 | NUR ---
PT SET UP FOR AM MEAL AT THIS TIME.
--- NOTE | 2020-03-14 09:15 | NUR ---
DR SY AT BEDSIDE AT THIS TIME.
--- NOTE | 2020-03-14 09:40 | NUR ---
ATIVAN GIVEN TO PRE MEDICATE PATIENT FOR MRI. PT TAKEN TO MRI BY GREYSON UREÑA VIA WHEELCHAIR.
[2020-03-14] MEDS ORDERED: LO-DOSE ASA81 MG PO ×2 (10:03)
--- NOTE | 2020-03-14 10:37 | NUR ---
PT RETURNED FROM MRI VIA WHEELCHAIR. ASSITED FBACK TO BED. PLACED BACK ON MONITOR. CALL LIGHT IN REACH. WILL CONTINUE TO MONITOR
--- NOTE | 2020-03-14 11:30 | NUR ---
PT SET UP FOR NOON MEAL AT THIS TIME.
--- NOTE | 2020-03-14 12:42 | NUR ---
PT RESTING IN BED AWAKE AND WATCHING TV. RESP ARE EVEN AND UNLABORED. NO DISTRESS NOTED. CALL LIGHT IN REACH. WILL CONTINUE TO MONITOR.
--- NOTE | 2020-03-14 14:00 | NUR ---
DISCHARGE INSTRUCTIONS REVEIWED WITH PATIENT. PATIENT VERBALIZED UNDERSTANDING.
--- NOTE | 2020-03-14 14:10 | NUR ---
Discharge instructions given. Patient verbalizes understanding of same. Discharged in stable condition via Wheelchair to Home with family. All belongings sent with pt.
== END 2020-03-14 14:10 | disposition home or self-care (01) | DRG 69 ==
LOC: ED 20:33 → ED-I 23:06 → ED 23:19 → ED-I 23:20 → ICU 03-13 13:52
PROVIDERS: Internal Medicine; ADMIT Internal Medicine; ATTEND Internal Medicine
DX: G45.9 Transient cerebral ischemic attack, unspecified (principal); Q07.00 Arnold-Chiari syndrome without spina bifida or hydrocephalus; G51.0 Bell's palsy; F41.9 Anxiety disorder, unspecified; R73.03 Prediabetes; F17.210 Nicotine dependence, cigarettes, uncomplicated; Z20.828 Contact with and (suspected) exposure to other viral communicable diseases
CPT/HCPCS: A9579; J2060; Q9967

== ENCOUNTER 2020-07-06 19:38 | Observation (INO) | payer OTHER ==
[~2020-07-06] VITALS: Ht 170.2 cm; Wt 117.7 kg
[~2020-07-06 19:38] MED LIST changes: +LO-DOSE ASA81 MG PO
--- NOTE | 2020-07-06 19:39 | NUR ---
AMBULATED TO ROOM WITH STEADY GAIT
[2020-07-06] MEDS ORDERED: BAYER ASPIRIN325 M1 PO (20:18)
[2020-07-06 20:31] LABS: HEMATOCRIT 44.9 % (39.0-50.0); HEMOGLOBIN 14.7 g/dl (14.0-18.0); IMMATURE GRANULOCYTES 0.4 % (0.0-5.0); MEAN CELL VOLUME 91.3 fL CALC (80.0-100.0); MEAN CORPUSCULAR HGB 29.9 pG CALC (26.0-32.0); MEAN CORPUSCULAR HGB CONC 32.7 g/dL CAL (32.0-36.0); NEUT# 6.39 thou/uL (1.82-7.42); RED BLOOD COUNT 4.92 mill/uL (4.70-6.10); RED CELL DISTRI WIDTH 12.8 % (11.5-15.5)
--- NOTE | 2020-07-06 20:37 | NUR ---
NITRO PASTE APPLIED TO RIGHT SHOULDER FOR C/O 8/10 CHEST PAIN.
[2020-07-06 20:48] LABS: ALBUMIN 4.2 g/dL (3.2-5.0); ALKALINE PHOSPHATASE 126 u/l (38-126); AMYLASE 54 u/l (30-110); ANION GAP 12 (6-22 (CALC)); BILIRUBIN, TOTAL 0.5 mg/dL (0.0-1.4); BUN 18 mg/dL (9-20); BUN/CREATININE RATIO 20 (12-20 (CALC)); CARBON DIOXIDE 24 mmol/l (22-30); CHLORIDE 104 mmol/l (95-108); CREATININE 0.9 mg/dL (0.7-1.3); GFR > 60 ML/MIN (>=60 (CALC)); GFR FOR AFR.AMER. > 60 ML/MIN (>=60 (CALC)); LIPASE 73 u/l (23-300); POTASSIUM 3.6 mmol/l (3.5-5.1); SGOT/AST 48 u/l (17-59); SODIUM 136 mmol/l (137-146); TOTAL PROTEIN 7.2 g/dL (6.3-8.2)
[2020-07-06 21:00] LABS: MYOGLOBIN 27 ng/mL (0 - 121)
[2020-07-06 21:27] LABS: URINE BILIRUBIN - DIPSTICK NEGATIVE (NEGATIVE); URINE BLOOD DIPSTICK NEGATIVE (NEGATIVE); URINE COLOR YELLOW; URINE GLUCOSE - DIPSTICK NEGATIVE (NEGATIVE); URINE KETONE NEGATIVE (NEGATIVE); URINE LEUK ESTERASE NEGATIVE (NEGATIVE); URINE NITRITE - DIPSTICK NEGATIVE (Negative); URINE PROTEIN - DIPSTICK NEGATIVE (NEG-TRACE); URINE SPECIFIC GRAVITY >=1.030
--- NOTE | 2020-07-06 21:32 | NUR ---
MD AT BEDSIDE TO DISCUSS RESULTS AND POC
--- NOTE | 2020-07-06 21:51 | NUR ---
REPORT GIVEN TO JACKIE RUBI.
--- NOTE | 2020-07-06 21:51 | NUR ---
RECEIVED REPORT. NITRO PASTE REMOVED BECAUSE OF BP OF 99/55
--- NOTE | 2020-07-06 22:00 | NUR ---
46 YEAR OLD MALE ARRIVED TO ROOM 269 FROM ER VIA W/C ACCOMPANIED BY ER STAFF WITH DIAGNOSIS OF CHEST PAIN. PATIENT IS ALERT, VERBAL, ABLE TO MAKE NEEDS KNOWN--ABLE TO TOLERATE MEDS WELL WHOLE. CONT OF BOWEL AND BLADDER--ABLE TO USE URINAL AND AMBULATE TO AND FROM THE BR INDEPENDENTLY--STEADY GAIT. PATIENT C/O HEADACHE DURING ASSESSMENT--MEDICATED WITH PRN TYLENOL. PATIENT IS BORDERLINE DIABETIC WITH A BS AT THIS TIME OF 104. ADMITS TO SMOKING ABOUT A PACK OF CIGARETTES EVERY THREE DAYS--NO ALCOHOL OR RECREATIONAL DRUG USE. TELEMETRY IN PLACE READING SINUS RHYTHM IN THE ER--RADIAL HR AT THIS TIME 78--REGULAR. LAST BM TODAY--NO CONSTIPATION NOTED. PIV SITE PATENT TO RIGHT AC AREA--FLUSHES WELL--SITE UNREMARKABLE. NS TO INFUSE AT 100ML/HR PER ORDERS. ORIENTED TO ROOM--C/L WITHIN REACH. WILL CONT TO MONITOR FOR ANY FURTHER CHANGES.
--- NOTE | 2020-07-06 22:00 | NUR ---
ATTEMPTED TO CALL REPORT. LYLE WILL CALL BACK.
--- NOTE | 2020-07-06 22:24 | NUR ---
REPORT TO BAYLEE/NURSE/MED-SURG
--- NOTE | 2020-07-06 22:30 | NUR ---
PT TO FLOOR VIA W/C WITH POCKET MONITOR. NO C/O AT THIS TIME. PWD. RESP EASY REG. CM SR. MASKED DO TO COVID PROTOCAL.
[2020-07-06 22:35] VITALS: BP 103/64
[2020-07-07] VITALS (9 sets, daily range): BP systolic 71–126; BP diastolic 44–80
--- NOTE | 2020-07-07 02:00 | NUR ---
PATIENT RESTING SOUNDLY IN BED WITH EYES CLOSED AT THIS TIME. NO COMPLAINTS OF PAIN OR DISCOMFORT VOICED OR NOTED THUS FAR IN SHIFT--MEDICATED FOR C/OS OF HEADACHE EARLIER--RESOLVED WITH TYLENOL. B/P MAINTAINING--NO HYPERTENSION NOTED. TELEMETRY IN PLACE--SINUS RHYTHM @ 77. TROPONIN AT 12AM NORMAL @ 0.012.PIV SITE PATENT TO RIGHT AC--FLUSHES WELL--SITE UNREMARKABLE. WILL CONT TO MONITOR FOR ANY FURTHER CHANGES.
--- NOTE | 2020-07-07 04:30 | NUR ---
4AM VITAL SIGNS REVEALED A B/P OF 71/44. PATIENT C/O FEELING EXTREMELY WEAK AND DIZZY. CALL PLACED TO ER MD FOR INSTRUCTIONS--NEW ORDERS TO OBTAIN AN EKG--CHECK HIS BS AND GIVE A 500ML NS BOLUS TIMES 1 NOW.
--- NOTE | 2020-07-07 05:00 | NUR ---
UPDATE ON PATIENT'S CONDITION--500ML BOLUS HAS BEEN INFUSED--PATIENT CURRENTLY REMAINS IN [place] POSITION--BS OF 87. EKG DONE WITH ONLY MINOR NON-CRITICAL CHANGES NOTED. B/P IS NOW 94/53. ER UPDATED--STATES TO WAIT ABOUT 20 MINS AND RECHECK BP AGAIN--IF STILL LOW--GIVE HIM ANOTHER 500ML NS BOLUS--IF BP IS NORMAL--RESUME NS @ 100ML/HR PER PREVIOUS ORDERS. WILL CONT TO MONITOR.
--- NOTE | 2020-07-07 05:45 | NUR ---
UPDATE ON PATIENT'S CONDITION--B/P /60--500ML NS BOLUS BEGAN AT THIS TIME PER MD ORDERS--PATIENT NO LONGER HAS ANY COMPLAINTS OF DIZZINESS OR WEAKNESS--AMBULATED TO BR WITH STANDBY ASSIST--WILL CONT TO MONITOR.
--- NOTE | 2020-07-07 06:24 | NUR ---
UPDATE ON PATIENT'S BP--97/59--HEADACHE IMPROVED--TYLENOL EFFECTIVE. ER MADE AWARE--NO NEW ORDERS--SIMPLY TO CONTINUE TO MONITOR.
[2020-07-07 06:37] LABS: HEMATOCRIT 43.2 % (39.0-50.0); HEMOGLOBIN 14.1 g/dl (14.0-18.0); IMMATURE GRANULOCYTES 0.5 % (0.0-5.0); MEAN CELL VOLUME 92.7 fL CALC (80.0-100.0); MEAN CORPUSCULAR HGB 30.3 pG CALC (26.0-32.0); MEAN CORPUSCULAR HGB CONC 32.6 g/dL CAL (32.0-36.0); NEUT# 3.68 thou/uL (1.82-7.42); RED BLOOD COUNT 4.66 mill/uL (4.70-6.10); RED CELL DISTRI WIDTH 12.9 % (11.5-15.5)
[2020-07-07 06:50] LABS: ANION GAP 10 (6-22 (CALC)); BUN 14 mg/dL (9-20); BUN/CREATININE RATIO 19 (12-20 (CALC)); CALCULATED LDLCHOLESTEROL 100 mg/dL (62-129 (CALC)); CARBON DIOXIDE 23 mmol/l (22-30); CHLORIDE 108 mmol/l (95-108); CHOLESTEROL HDL RATIO 5.8 (<4.4 (CALC)); CREATININE 0.8 mg/dL (0.7-1.3); GFR > 60 ML/MIN (>=60 (CALC)); GFR FOR AFR.AMER. > 60 ML/MIN (>=60 (CALC)); HDL CHOLESTEROL 27 mg/dL (>=40); SODIUM 137 mmol/l (137-146); TOTAL CHOLESTEROL 155 mg/dl (0-199); TOTAL TRIGLYCERIDES 143 mg/dl (30-149); VLDL CHOLESTROL 29 mg/dl (5-56 (CALC))
--- NOTE | 2020-07-07 07:37 | NUR ---
PT RESTING IN BED, NO SIGNS OF DISTRESS NOTED, RESP EVEN AND UNLABORED, VITALS OBTAINED, VSS, DISCUSSED POC, PT DENIES CP AT THIS TIME, STATES,"IT COMES AND IT GOES". ASSESSMENT COMPLETED, CALL LIGHT IN REACH,CONTINUE TO MONITOR.
--- NOTE | 2020-07-07 09:03 | NUR ---
PT RESTING IN BED, VOICES NO NEEDS OR COMPLAINTS AT THIS TIME, MEDICATED WITH ASA, CALL LIGHT IN REACH,CONTINUE TO MONITOR.
--- NOTE | 2020-07-07 10:58 | NUR ---
NEW IV BAG HUNG, PT VOICES NO NEEDS OR COMPLAINTS AT THIS TIME. CALL LIGHT IN REACH,CONTINUE TO MONITOR.
--- NOTE | 2020-07-07 15:45 | NUR ---
PT RESTING IN BED WATCHING TV, DISCUSSED ORTHOSTATIC BP, PT VERBALIZED UNDERSTANDING. BP'S OBTAINED, PT TOLERATED WELL NO C/O DIZZYNESS, CALL LIGHT IN REACH,CONTINUE TO MONITOR.
--- NOTE | 2020-07-07 16:32 | NUR ---
DISCHARGE INSTRUCTIONS PROVIDED, PT VERBALIZED UNDERSTANDING. IV REMOVED, CATHETER INTACT. AWAITING HIS RIDE. CONTINUE TO MONITOR.
--- NOTE | 2020-07-07 16:41 | NUR ---
Discharge instructions given. Patient verbalizes understanding of same. Discharged in stable condition via Wheelchair to Home with significant other. All belongings sent with pt.
== END 2020-07-07 16:40 | disposition home or self-care (01) ==
LOC: ED 19:38 → ED-I 21:37 → ED 21:50 → MS2 21:51
PROVIDERS: Emergency Medicine; ADMIT Internal Medicine; ATTEND Internal Medicine
DX: R07.9 Chest pain, unspecified (principal); I95.9 Hypotension, unspecified; Q07.00 Arnold-Chiari syndrome without spina bifida or hydrocephalus; R73.03 Prediabetes; F32.9 Major depressive disorder, single episode, unspecified; E78.5 Hyperlipidemia, unspecified; E66.9 Obesity, unspecified; F17.210 Nicotine dependence, cigarettes, uncomplicated; Z82.49 Family history of ischemic heart disease and other diseases of the circulatory system; Z20.828 Contact with and (suspected) exposure to other viral communicable diseases
CPT/HCPCS: G0378; J1650

== ENCOUNTER 2020-09-10 20:04 | Emergency (ER) | payer OTHER ==
[~2020-09-10] VITALS: Ht 170.2 cm; Wt 123.0 kg
[~2020-09-10 20:04] MED LIST changes: +BAYER ASPIRIN325 M1 PO
[2020-09-10 20:36] LABS: GFR > 60 ML/MIN (>=60 (CALC)); GFR FOR AFR.AMER. > 60 ML/MIN (>=60 (CALC)); HEMATOCRIT 48.3 % (39.0-50.0); HEMOGLOBIN 15.8 g/dl (14.0-18.0); IMMATURE GRANULOCYTES 0.3 % (0.0-5.0); MEAN CELL VOLUME 92.2 fL CALC (80.0-100.0); MEAN CORPUSCULAR HGB 30.2 pG CALC (26.0-32.0); MEAN CORPUSCULAR HGB CONC 32.7 g/dL CAL (32.0-36.0); NEUT# 7.52 thou/uL (1.82-7.42); RED BLOOD COUNT 5.24 mill/uL (4.70-6.10); RED CELL DISTRI WIDTH 12.6 % (11.5-15.5)
[2020-09-10 20:55] LABS: ACT PARTIAL THROMBO TIME 25.4 SECONDS (20.0-32.5); ALBUMIN 4.5 g/dL (3.2-5.0); ALKALINE PHOSPHATASE 115 u/l (38-126); AMYLASE 76 u/l (30-110); ANION GAP 13 (6-22 (CALC)); BILIRUBIN, TOTAL 0.7 mg/dL (0.0-1.4); BUN 15 mg/dL (9-20); BUN/CREATININE RATIO 15 (12-20 (CALC)); CARBON DIOXIDE 26 mmol/l (22-30); CHLORIDE 105 mmol/l (95-108); ETHYL ALCOHOL 0 mg/dl (0-30); GFR > 60 ML/MIN (>=60 (CALC)); GFR FOR AFR.AMER. > 60 ML/MIN (>=60 (CALC)); LIPASE 60 u/l (23-300); POTASSIUM 3.7 mmol/l (3.5-5.1); PROTHROMBIN TIME 9.8 SECONDS (9.0-12.5); SGOT/AST 28 u/l (17-59); SODIUM 140 mmol/l (137-146); TOTAL PROTEIN 7.6 g/dL (6.3-8.2)
[2020-09-10 21:25] LABS: TSH, 3RD GENERATION 1.21 uIU/mL (0.47 - 4.68)
[2020-09-10 22:30] VITALS: BP 127/70
== END 2020-09-10 22:20 | disposition short-term general hospital (02) ==
LOC: ED 20:04
DX: I63.9 Cerebral infarction, unspecified (principal); R29.810 Facial weakness; G81.91 Hemiplegia, unspecified affecting right dominant side; R47.81 Slurred speech; R07.9 Chest pain, unspecified; Q07.00 Arnold-Chiari syndrome without spina bifida or hydrocephalus; I10 Essential (primary) hypertension; E78.5 Hyperlipidemia, unspecified; R73.03 Prediabetes; F32.9 Major depressive disorder, single episode, unspecified; I51.7 Cardiomegaly; F17.200 Nicotine dependence, unspecified, uncomplicated; Z86.73 Personal history of transient ischemic attack (TIA), and cerebral infarction without residual deficits; Z20.828 Contact with and (suspected) exposure to other viral communicable diseases
CPT/HCPCS: Q9967; S0164

== ENCOUNTER 2021-03-07 11:21 | Emergency (ER) | payer OTHER ==
[~2021-03-07] VITALS: Ht 170.2 cm; Wt 119.0 kg
[2021-03-07 12:36] LABS: HEMATOCRIT 47.1 % (39.0-50.0); HEMOGLOBIN 15.7 g/dl (14.0-18.0); IMMATURE GRANULOCYTES 0.3 % (0.0-5.0); MEAN CELL VOLUME 88.5 fL CALC (80.0-100.0); MEAN CORPUSCULAR HGB 29.5 pG CALC (26.0-32.0); MEAN CORPUSCULAR HGB CONC 33.3 g/dL CAL (32.0-36.0); NEUT# 3.69 thou/uL (1.82-7.42); RED BLOOD COUNT 5.32 mill/uL (4.70-6.10); RED CELL DISTRI WIDTH 12.8 % (11.5-15.5)
[2021-03-07 12:46] LABS: ALBUMIN 4.5 g/dL (3.2-5.0); ALKALINE PHOSPHATASE 150 u/l (38-126); ANION GAP 15 (6-22 (CALC)); BILIRUBIN, TOTAL 0.5 mg/dL (0.0-1.4); BUN 14 mg/dL (9-20); BUN/CREATININE RATIO 18 (12-20 (CALC)); CARBON DIOXIDE 22 mmol/l (22-30); CHLORIDE 105 mmol/l (95-108); CREATININE 0.8 mg/dL (0.7-1.3); GFR > 60 ML/MIN (>=60 (CALC)); GFR FOR AFR.AMER. > 60 ML/MIN (>=60 (CALC)); POTASSIUM 3.9 mmol/l (3.5-5.1); SGOT/AST 33 u/l (17-59); SODIUM 137 mmol/l (137-146)
[2021-03-07 12:58] LABS: MYOGLOBIN 43 ng/mL (0 - 121)
[2021-03-07 16:08] LABS: URINE BILIRUBIN - DIPSTICK NEGATIVE (NEGATIVE); URINE BLOOD DIPSTICK NEGATIVE (NEGATIVE); URINE COLOR YELLOW; URINE GLUCOSE - DIPSTICK NEGATIVE (NEGATIVE); URINE KETONE NEGATIVE (NEGATIVE); URINE LEUK ESTERASE NEGATIVE (NEGATIVE); URINE NITRITE - DIPSTICK NEGATIVE (Negative); URINE PROTEIN - DIPSTICK TRACE mg/dL (NEG-TRACE); URINE SPECIFIC GRAVITY >=1.030; URINE UROBILINOGEN - DIPSTICK 0.2 E.U./dL (0.2)
[2021-03-07 18:50] VITALS: BP 113/61
== END 2021-03-07 18:53 | disposition short-term general hospital (02) ==
LOC: ED 11:21
PROVIDERS: Emergency Medicine
DX: R07.9 Chest pain, unspecified (principal); Q07.00 Arnold-Chiari syndrome without spina bifida or hydrocephalus; I51.7 Cardiomegaly; F32.9 Major depressive disorder, single episode, unspecified; R73.03 Prediabetes; F17.200 Nicotine dependence, unspecified, uncomplicated; Z82.49 Family history of ischemic heart disease and other diseases of the circulatory system; Z86.73 Personal history of transient ischemic attack (TIA), and cerebral infarction without residual deficits
CPT/HCPCS: J2060

== ENCOUNTER 2021-08-07 02:56 | Observation (INO) | payer OTHER ==
[~2021-08-07] VITALS: Ht 170.2 cm; Wt 107.0 kg
--- NOTE | 2021-08-07 02:57 | NUR ---
PT TAKEN TO ROOM 12 VIA W/C
--- NOTE | 2021-08-07 03:15 | NUR ---
PT AWARE OF PLAN OF CARE; FAMILY MEMBER AT BEDSIDE; NO FURTHER ASSISTANCE AT THIS TIME
[2021-08-07] MEDS ORDERED: ELIQUIS5 MG PO (03:16)
[2021-08-07 03:25] LABS: HEMATOCRIT 48.1 % (39.0-50.0); HEMOGLOBIN 15.9 g/dl (14.0-18.0); IMMATURE GRANULOCYTES 0.2 % (0.0-5.0); MEAN CELL VOLUME 92.1 fL CALC (80.0-100.0); MEAN CORPUSCULAR HGB 30.5 pG CALC (26.0-32.0); MEAN CORPUSCULAR HGB CONC 33.1 g/dL CAL (32.0-36.0); NEUT# 4.3 thou/uL (1.82-7.42); RED BLOOD COUNT 5.22 mill/uL (4.70-6.10); RED CELL DISTRI WIDTH 12.7 % (11.5-15.5)
[2021-08-07 03:30] LABS: ALBUMIN 4.7 g/dL (3.2-5.0); ALKALINE PHOSPHATASE 154 u/l (38-126); AMYLASE 76 u/l (30-110); ANION GAP 14 (6-22 (CALC)); BILIRUBIN, TOTAL 0.5 mg/dL (0.0-1.4); BUN 20 mg/dL (9-20); BUN/CREATININE RATIO 20 (12-20 (CALC)); CHLORIDE 104 mmol/l (95-108); GFR > 60 ML/MIN (>=60 (CALC)); GFR FOR AFR.AMER. > 60 ML/MIN (>=60 (CALC)); LIPASE 150 u/l (23-300); POTASSIUM 3.7 mmol/l (3.5-5.1); SGOT/AST 32 u/l (17-59); SODIUM 141 mmol/l (137-146); TOTAL PROTEIN 7.8 g/dL (6.3-8.2)
[2021-08-07 03:40] LABS: CARBON DIOXIDE 27 mmol/l (22-30)
[2021-08-07 03:42] LABS: MYOGLOBIN 39 ng/mL (0 - 121)
--- NOTE | 2021-08-07 03:50 | NUR ---
PAIN ASSESSED; PT PAIN WENT FROM 7/10 TO 4/10 WITH MEDICATION
--- NOTE | 2021-08-07 04:00 | NUR ---
MD AT BEDSIDE DISCUSSING PLAN OF CARE
--- NOTE | 2021-08-07 04:52 | NUR ---
REPORT GIVEN TO RODRÍGUEZ RUBI FOR RM [id number]
[2021-08-07 04:56] VITALS: BP 112/79
--- NOTE | 2021-08-07 04:56 | NUR ---
PT ARRIVED TO MS2 VIA STRETCHER ACCOMPANIED BY ER NURSE. PT ALERT AND ORIENTED X3, AMBULATED WITH STEADY GAIT FROM STRETCHER TO BED. ORIENTED PT TO ROOM AND CALL LIGHT, DISCUSSED POC, PT DENIES ANY CP AT THIS TIME. SKIN INTACT. LUNG SOUNDS CLEAR, IV SL TO RAC, FLUSHED WELL. ADMISSION ASSESSMENT COMPLETED CALL LIGHT IN REACH,CONTINUE TO MONITOR.
[2021-08-07 05:08] LABS: CHOLESTEROL HDL RATIO 5.4 (<4.4 (CALC))
--- NOTE | 2021-08-07 07:30 | NUR ---
PT LYING IN BED ASLEEP, AWOKEN TO SN ENTERING ROOM. ASSESSMENT PERFORMED. NO COMPLAINTS/DISTRESS AT THIS TIME WILL CONTINUE TO MONITOR.
[2021-08-07 07:45] VITALS: BP 104/61
[2021-08-07 11:12] VITALS: BP 108/71
--- NOTE | 2021-08-07 14:41 | NUR ---
Discharge instructions given. Patient verbalizes understanding of same. Discharged in stable condition via Wheelchair to Home with family. All belongings sent with pt.
== END 2021-08-07 14:41 | disposition home or self-care (01) ==
LOC: ED 02:56 → ED-I 04:04 → ED 04:08 → MS2 04:09
PROVIDERS: Family Medicine; ADMIT Internal Medicine; ATTEND Internal Medicine
DX: R07.9 Chest pain, unspecified (principal); I10 Essential (primary) hypertension; Q07.00 Arnold-Chiari syndrome without spina bifida or hydrocephalus; F32.A Depression, unspecified; F17.210 Nicotine dependence, cigarettes, uncomplicated; Z82.49 Family history of ischemic heart disease and other diseases of the circulatory system; Z87.442 Personal history of urinary calculi; Z20.822 Contact with and (suspected) exposure to COVID-19
CPT/HCPCS: G0378; J0131

== ENCOUNTER 2021-11-02 00:35 | Emergency (ER) | payer OTHER ==
[~2021-11-02] VITALS: Ht 170.2 cm; Wt 118.0 kg
[~2021-11-02 00:35] MED LIST changes: +ELIQUIS5 MG PO
[2021-11-02 01:15] LABS: HEMATOCRIT 46.7 % (39.0-50.0); HEMOGLOBIN 15.4 g/dl (14.0-18.0); IMMATURE GRANULOCYTES 0.2 % (0.0-5.0); MEAN CELL VOLUME 91.4 fL CALC (80.0-100.0); MEAN CORPUSCULAR HGB 30.1 pG CALC (26.0-32.0); NEUT# 3.8 thou/uL (1.82-7.42); RED BLOOD COUNT 5.11 mill/uL (4.70-6.10); RED CELL DISTRI WIDTH 12.6 % (11.5-15.5)
[2021-11-02 01:30] LABS: ALBUMIN 4.3 g/dL (3.2-5.0); ALKALINE PHOSPHATASE 127 u/l (38-126); AMYLASE 65 u/l (30-110); BILIRUBIN, TOTAL 0.5 mg/dL (0.0-1.4); BUN 16 mg/dL (9-20); BUN/CREATININE RATIO 17 (12-20 (CALC)); CHLORIDE 104 mmol/l (95-108); GFR > 60 ML/MIN (>=60 (CALC)); GFR FOR AFR.AMER. > 60 ML/MIN (>=60 (CALC)); LIPASE 111 u/l (23-300); POTASSIUM 3.8 mmol/l (3.5-5.1); SGOT/AST 27 u/l (17-59); SODIUM 138 mmol/l (137-146); TOTAL PROTEIN 7.3 g/dL (6.3-8.2)
[2021-11-02 01:31] LABS: ANION GAP 17 (6-22 (CALC)); CARBON DIOXIDE 21 mmol/l (22-30)
[2021-11-02 01:43] LABS: MYOGLOBIN 62 ng/mL (0 - 121)
[2021-11-02] MEDS ORDERED: TORADOL PO (01:56)
[2021-11-02 02:10] VITALS: BP 121/77
== END 2021-11-02 02:15 | disposition home or self-care (01) ==
LOC: ED 00:35
PROVIDERS: Family Medicine
DX: R07.9 Chest pain, unspecified (principal); R73.03 Prediabetes; F32.A Depression, unspecified; Q07.00 Arnold-Chiari syndrome without spina bifida or hydrocephalus; F17.200 Nicotine dependence, unspecified, uncomplicated; Z82.49 Family history of ischemic heart disease and other diseases of the circulatory system; Z86.718 Personal history of other venous thrombosis and embolism; Z79.01 Long term (current) use of anticoagulants

== ENCOUNTER 2022-01-19 02:53 | Inpatient (IN) | payer OTHER ==
[~2022-01-19] VITALS: Ht 170.2 cm; Wt 118.0 kg
[2022-01-19] VITALS (23 sets, daily range): BP systolic 89–136; BP diastolic 54–94
--- NOTE | 2022-01-19 03:07 | NUR ---
STROKE ALERT CALLED
[2022-01-19 03:28] LABS: GFR > 60 ML/MIN (>=60 (CALC)); GFR FOR AFR.AMER. > 60 ML/MIN (>=60 (CALC))
[2022-01-19 03:33] LABS: HEMATOCRIT 46.9 % (39.0-50.0); HEMOGLOBIN 15.7 g/dl (14.0-18.0); IMMATURE GRANULOCYTES 0.1 % (0.0-5.0); MEAN CELL VOLUME 91.4 fL CALC (80.0-100.0); MEAN CORPUSCULAR HGB 30.6 pG CALC (26.0-32.0); MEAN CORPUSCULAR HGB CONC 33.5 g/dL CAL (32.0-36.0); NEUT# 4.86 thou/uL (1.82-7.42); RED BLOOD COUNT 5.13 mill/uL (4.70-6.10); RED CELL DISTRI WIDTH 12.8 % (11.5-15.5)
[2022-01-19] MEDS ORDERED: ASPIRIN LOW81 M1 PO (03:39)
[2022-01-19 03:48] LABS: ALBUMIN 4.3 g/dL (3.2-5.0); ALKALINE PHOSPHATASE 150 u/l (38-126); ANION GAP 14 (6-22 (CALC)); BILIRUBIN, TOTAL 0.3 mg/dL (0.0-1.4); BUN 13 mg/dL (9-20); BUN/CREATININE RATIO 15 (12-20 (CALC)); CARBON DIOXIDE 20 mmol/l (22-30); CHLORIDE 111 mmol/l (95-108); CREATININE 0.9 mg/dL (0.7-1.3); GFR > 60 ML/MIN (>=60 (CALC)); GFR FOR AFR.AMER. > 60 ML/MIN (>=60 (CALC)); POTASSIUM 3.5 mmol/l (3.5-5.1); SGOT/AST 32 u/l (17-59); SODIUM 141 mmol/l (137-146); TOTAL PROTEIN 7.2 g/dL (6.3-8.2)
[2022-01-19 03:50] LABS: INTERNATIONAL NORMALIZED RATIO 0.9 RATIO (0.7-1.3); PROTHROMBIN TIME 9.7 SECONDS (9.0-12.5)
[2022-01-19 04:00] LABS: MYOGLOBIN 137 ng/mL (0 - 121)
--- NOTE | 2022-01-19 04:06 | NUR ---
STROKE ALERT CALLED AT 0307. PT IN CT @ 0316. NEUROTELE CONSULT WITH DR SHAD HAQUE @ 0320. CTA TIME 0330.
--- NOTE | 2022-01-19 04:08 | NUR ---
PT IN ROOM, RESTING ON STRETCHER, DAUGHTER AT BEDSIDE. CALL LIGHT WITHIN REACH
[2022-01-19 05:34] LABS: URINE BILIRUBIN - DIPSTICK NEGATIVE (NEGATIVE); URINE BLOOD DIPSTICK NEGATIVE (NEGATIVE); URINE COLOR YELLOW; URINE GLUCOSE - DIPSTICK NEGATIVE (NEGATIVE); URINE KETONE NEGATIVE (NEGATIVE); URINE LEUK ESTERASE NEGATIVE (NEGATIVE); URINE PROTEIN - DIPSTICK NEGATIVE (NEG-TRACE); URINE UROBILINOGEN - DIPSTICK 0.2 E.U./dL (0.2)
[2022-01-19 05:40] LABS: URINE NITRITE - DIPSTICK NEGATIVE (Negative)
--- NOTE | 2022-01-19 05:43 | NUR ---
PT RESTING ON STRETCHER. CALL LIGHT WITHIN REACH. NO NEEDS EXPRESSED.
--- NOTE | 2022-01-19 08:00 | NUR ---
PT TRANSFERRED TO ICU 8, STABLE
[2022-01-19 08:38] LABS: HEMATOCRIT 45.5 % (39.0-50.0); HEMOGLOBIN 14.9 g/dl (14.0-18.0); IMMATURE GRANULOCYTES 0.1 % (0.0-5.0); MEAN CELL VOLUME 91.7 fL CALC (80.0-100.0); MEAN CORPUSCULAR HGB CONC 32.7 g/dL CAL (32.0-36.0); NEUT# 5.33 thou/uL (1.82-7.42); RED BLOOD COUNT 4.96 mill/uL (4.70-6.10); RED CELL DISTRI WIDTH 12.7 % (11.5-15.5)
[2022-01-19 09:05] LABS: ALBUMIN 3.9 g/dL (3.2-5.0); ALKALINE PHOSPHATASE 133 u/l (38-126); C-REACTIVE PROTEIN < 0.5 mg/dL (0-0.9); CALCULATED LDLCHOLESTEROL 114 mg/dL (62-129 (CALC)); CHOLESTEROL HDL RATIO 4.6 (<4.4 (CALC)); HDL CHOLESTEROL 39 mg/dL (>=40); MAGNESIUM 2.3 mg/dL (1.6-2.3); SGOT/AST 27 u/l (17-59); TOTAL CHOLESTEROL 177 mg/dl (0-199); TOTAL PROTEIN 6.7 g/dL (6.3-8.2); TOTAL TRIGLYCERIDES 121 mg/dl (30-149); VLDL CHOLESTROL 24 mg/dl (5-56 (CALC))
[2022-01-19 09:06] LABS: ANION GAP 10 (6-22 (CALC)); BUN 12 mg/dL (9-20); BUN/CREATININE RATIO 15 (12-20 (CALC)); CARBON DIOXIDE 23 mmol/l (22-30); CHLORIDE 110 mmol/l (95-108); CREATININE 0.8 mg/dL (0.7-1.3); GFR > 60 ML/MIN (>=60 (CALC)); GFR FOR AFR.AMER. > 60 ML/MIN (>=60 (CALC)); POTASSIUM 3.8 mmol/l (3.5-5.1); SODIUM 140 mmol/l (137-146)
[2022-01-19 09:14] LABS: BILIRUBIN, TOTAL 0.5 mg/dL (0.0-1.4)
== END 2022-01-19 13:40 | disposition home or self-care (01) | DRG 313 ==
LOC: ED 02:53 → ED-I 05:17 → ED 06:16 → ICU 06:17
PROVIDERS: Emergency Medicine; Internal Medicine; ADMIT Hospitalist; ATTEND Hospitalist
DX: R07.9 Chest pain, unspecified (principal); R20.0 Anesthesia of skin; G51.0 Bell's palsy; F32.A Depression, unspecified; F17.200 Nicotine dependence, unspecified, uncomplicated; T45.516A Underdosing of anticoagulants, initial encounter; Z91.120 Patient's intentional underdosing of medication regimen due to financial hardship; Z79.82 Long term (current) use of aspirin; Z86.718 Personal history of other venous thrombosis and embolism; Z87.442 Personal history of urinary calculi; Z20.822 Contact with and (suspected) exposure to COVID-19
CPT/HCPCS: Q9967

== ENCOUNTER 2022-04-27 11:02 | Emergency (ER) | payer OTHER ==
[~2022-04-27] VITALS: Ht 170.2 cm; Wt 121.0 kg
[2022-04-27] VITALS (8 sets, daily range): BP systolic 105–121; BP diastolic 65–81
[~2022-04-27 11:02] MED LIST changes: +ASPIRIN LOW81 M1 PO
[2022-04-27 11:29] LABS: HEMATOCRIT 47.8 % (39.0-50.0); HEMOGLOBIN 15.7 g/dl (14.0-18.0); IMMATURE GRANULOCYTES 0.3 % (0.0-5.0); MEAN CELL VOLUME 92.1 fL CALC (80.0-100.0); MEAN CORPUSCULAR HGB 30.3 pG CALC (26.0-32.0); MEAN CORPUSCULAR HGB CONC 32.8 g/dL CAL (32.0-36.0); NEUT# 4.83 thou/uL (1.82-7.42); RED BLOOD COUNT 5.19 mill/uL (4.70-6.10); RED CELL DISTRI WIDTH 12.9 % (11.5-15.5)
[2022-04-27 11:36] LABS: GFR FOR AFR.AMER. > 60 ML/MIN (>=60 (CALC)); GFR OTHER RACES > 60 ML/MIN (>=60 (CALC))
[2022-04-27 11:47] LABS: ALBUMIN 4.2 g/dL (3.2-5.0); ALKALINE PHOSPHATASE 148 u/l (38-126); ANION GAP 12 (6-22 (CALC)); BILIRUBIN, TOTAL 0.3 mg/dL (0.0-1.4); BUN 13 mg/dL (9-20); BUN/CREATININE RATIO 14 (12-20 (CALC)); CARBON DIOXIDE 24 mmol/l (22-30); CHLORIDE 108 mmol/l (95-108); CREATININE 0.9 mg/dL (0.7-1.3); GFR FOR AFR.AMER. > 60 ML/MIN (>=60 (CALC)); GFR OTHER RACES > 60 ML/MIN (>=60 (CALC)); POTASSIUM 3.9 mmol/l (3.5-5.1); SGOT/AST 26 u/l (17-59); SODIUM 140 mmol/l (137-146); TOTAL PROTEIN 7.1 g/dL (6.3-8.2)
[2022-04-27 11:48] LABS: INTERNATIONAL NORMALIZED RATIO 0.9 RATIO (0.7-1.3); PROTHROMBIN TIME 9.8 SECONDS (9.0-12.5)
[2022-04-27 12:30] LABS: URINE BILIRUBIN - DIPSTICK NEGATIVE (NEGATIVE); URINE BLOOD DIPSTICK NEGATIVE (NEGATIVE); URINE COLOR YELLOW; URINE GLUCOSE - DIPSTICK NEGATIVE (NEGATIVE); URINE KETONE NEGATIVE (NEGATIVE); URINE LEUK ESTERASE NEGATIVE (NEGATIVE); URINE PH 5.5 (4.5-8.0); URINE PROTEIN - DIPSTICK NEGATIVE (NEG-TRACE); URINE UROBILINOGEN - DIPSTICK 0.2 E.U./dL (0.2)
[2022-04-27 12:36] LABS: URINE NITRITE - DIPSTICK NEGATIVE (Negative)
== END 2022-04-27 13:24 | disposition left against medical advice (07) ==
LOC: ED 11:02
PROVIDERS: Family Medicine
DX: R07.9 Chest pain, unspecified (principal); G45.9 Transient cerebral ischemic attack, unspecified; I10 Essential (primary) hypertension; R73.03 Prediabetes; E78.5 Hyperlipidemia, unspecified; F17.200 Nicotine dependence, unspecified, uncomplicated; Z86.718 Personal history of other venous thrombosis and embolism; Z91.19 Patient's noncompliance with other medical treatment and regimen; Z79.01 Long term (current) use of anticoagulants
CPT/HCPCS: Q9967

== ENCOUNTER 2022-10-02 19:42 | Observation (INO) | payer BC, OTHER ==
[~2022-10-02] VITALS: Ht 170.2 cm; Wt 120.0 kg
[2022-10-02] VITALS (12 sets, daily range): BP systolic 98–142; BP diastolic 60–83
[2022-10-02 20:19] LABS: BASO% 0.3 % (0-3); EOS% 2.3 % (0-8); HEMOGLOBIN 15.3 g/dl (14.0-18.0); IMMATURE GRANULOCYTES 0.3 % (0.0-5.0); LYMPH% 28.4 % (15-41); MEAN CELL VOLUME 92.6 fL CALC (80.0-100.0); MEAN CORPUSCULAR HGB 31.5 pG CALC (26.0-32.0); MONO% 8.1 % (2-13); NEUT# 5.27 thou/uL (1.82-7.42); NEUT% 60.6 % (42-76); RED BLOOD COUNT 4.86 mill/uL (4.70-6.10); RED CELL DISTRI WIDTH 12.8 % (11.5-15.5)
[2022-10-02 20:20] LABS: URINE BILIRUBIN - DIPSTICK NEGATIVE (NEGATIVE); URINE BLOOD DIPSTICK NEGATIVE (NEGATIVE); URINE COLOR YELLOW; URINE GLUCOSE - DIPSTICK NEGATIVE (NEGATIVE); URINE KETONE TRACE mg/dL (NEGATIVE); URINE LEUK ESTERASE NEGATIVE (NEGATIVE); URINE PROTEIN - DIPSTICK NEGATIVE (NEG-TRACE); URINE SPECIFIC GRAVITY >=1.030; URINE UROBILINOGEN - DIPSTICK 0.2 E.U./dL (0.2)
[2022-10-02 20:24] LABS: URINE NITRITE - DIPSTICK NEGATIVE (Negative)
[2022-10-02 20:35] LABS: ALBUMIN 4.6 g/dL (3.2-5.0); ALKALINE PHOSPHATASE 125 u/l (38-126); ANION GAP 11 (6-22 (CALC)); BILIRUBIN, TOTAL 0.2 mg/dL (0.0-1.4); BUN 21 mg/dL (9-20); BUN/CREATININE RATIO 18 (12-20 (CALC)); CARBON DIOXIDE 25 mmol/l (22-30); CHLORIDE 108 mmol/l (95-108); CREATININE 1.2 mg/dL (0.7-1.3); GFR FOR AFR.AMER. > 60 ML/MIN (>=60 (CALC)); GFR OTHER RACES > 60 ML/MIN (>=60 (CALC)); LIPASE 111 u/l (23-300); POTASSIUM 3.8 mmol/l (3.5-5.1); SGOT/AST 39 u/l (17-59); SODIUM 141 mmol/l (137-146); TOTAL PROTEIN 7.6 g/dL (6.3-8.2)
[2022-10-03] VITALS: BP 93/45
[2022-10-03 04:00] VITALS: BP 90/55
[2022-10-03 05:24] VITALS: BP 90/55
[2022-10-03 06:02] LABS: BASO% 0.3 % (0-3); EOS% 2.9 % (0-8); HEMATOCRIT 43.2 % (39.0-50.0); HEMOGLOBIN 14.7 g/dl (14.0-18.0); IMMATURE GRANULOCYTES 0.5 % (0.0-5.0); LYMPH% 38.1 % (15-41); MEAN CELL VOLUME 93.1 fL CALC (80.0-100.0); MEAN CORPUSCULAR HGB 31.7 pG CALC (26.0-32.0); MONO% 9.3 % (2-13); NEUT# 3.58 thou/uL (1.82-7.42); NEUT% 48.9 % (42-76); RED BLOOD COUNT 4.64 mill/uL (4.70-6.10); RED CELL DISTRI WIDTH 12.8 % (11.5-15.5)
[2022-10-03 06:16] LABS: ALBUMIN 3.7 g/dL (3.2-5.0); ALKALINE PHOSPHATASE 106 u/l (38-126); ANION GAP 8 (6-22 (CALC)); BILIRUBIN, TOTAL 0.3 mg/dL (0.0-1.4); BUN 21 mg/dL (9-20); BUN/CREATININE RATIO 23 (12-20 (CALC)); CARBON DIOXIDE 24 mmol/l (22-30); CHLORIDE 110 mmol/l (95-108); CREATININE 0.9 mg/dL (0.7-1.3); GFR FOR AFR.AMER. > 60 ML/MIN (>=60 (CALC)); GFR OTHER RACES > 60 ML/MIN (>=60 (CALC)); POTASSIUM 3.9 mmol/l (3.5-5.1); SGOT/AST 29 u/l (17-59); SODIUM 138 mmol/l (137-146); TOTAL PROTEIN 6.4 g/dL (6.3-8.2)
[2022-10-03 07:07] VITALS: BP 94/58
[2022-10-03 10:19] VITALS: BP 114/81
[2022-10-03] MEDS ORDERED: PROTONIX40 M2 PO (12:47)
== END 2022-10-03 13:20 | disposition home or self-care (01) | DRG 313 ==
LOC: ED 19:42 → ED-I 20:50 → ED 20:57 → MS2 20:58
PROVIDERS: Emergency Medicine; ADMIT Internal Medicine; ATTEND Internal Medicine
DX: R07.89 Other chest pain (principal); I10 Essential (primary) hypertension; F17.200 Nicotine dependence, unspecified, uncomplicated; Z86.718 Personal history of other venous thrombosis and embolism; Z20.822 Contact with and (suspected) exposure to COVID-19; Z87.442 Personal history of urinary calculi; Z80.0 Family history of malignant neoplasm of digestive organs; Z82.49 Family history of ischemic heart disease and other diseases of the circulatory system
CPT/HCPCS: G0378

== ENCOUNTER 2022-11-16 10:12 | Emergency (ER) | payer BC, OTHER ==
[~2022-11-16] VITALS: Ht 170.2 cm; Wt 122.0 kg
[~2022-11-16 10:12] MED LIST changes: +PROTONIX40 M2 PO
[2022-11-16 11:43] LABS: BASO% 0.5 % (0-3); EOS% 1.5 % (0-8); HEMATOCRIT 50.2 % (39.0-50.0); HEMOGLOBIN 16.1 g/dl (14.0-18.0); IMMATURE GRANULOCYTES 0.3 % (0.0-5.0); LYMPH% 30.3 % (15-41); MEAN CELL VOLUME 92.1 fL CALC (80.0-100.0); MEAN CORPUSCULAR HGB 29.5 pG CALC (26.0-32.0); MEAN CORPUSCULAR HGB CONC 32.1 g/dL CAL (32.0-36.0); NEUT# 5.19 thou/uL (1.82-7.42); NEUT% 60.4 % (42-76); RED BLOOD COUNT 5.45 mill/uL (4.70-6.10); RED CELL DISTRI WIDTH 12.7 % (11.5-15.5)
[2022-11-16 11:46] VITALS: BP 113/88
[2022-11-16 11:59] LABS: ALKALINE PHOSPHATASE 120 u/l (38-126); ANION GAP 15 (6-22 (CALC)); BUN 13 mg/dL (9-20); BUN/CREATININE RATIO 16 (12-20 (CALC)); CARBON DIOXIDE 24 mmol/l (22-30); CHLORIDE 105 mmol/l (95-108); CREATININE 0.8 mg/dL (0.7-1.3); GFR FOR AFR.AMER. > 60 ML/MIN (>=60 (CALC)); GFR OTHER RACES > 60 ML/MIN (>=60 (CALC)); POTASSIUM 4.3 mmol/l (3.5-5.1); PROTHROMBIN TIME 9.8 SECONDS (9.0-12.5); SGOT/AST 41 u/l (17-59); SODIUM 138 mmol/l (137-146)
[2022-11-16 12:00] LABS: ALBUMIN 4.8 g/dL (3.2-5.0); BILIRUBIN, TOTAL 0.9 mg/dL (0.2-1.3); TOTAL PROTEIN 7.7 g/dL (6.3-8.2)
[2022-11-16] MEDS ORDERED: XARELTO STARTER1 TAB PO (12:27)
[2022-11-16 12:48] VITALS: BP 113/88
== END 2022-11-16 13:05 | disposition home or self-care (01) | DRG 301 ==
LOC: ED 10:12
PROVIDERS: Nurse Practitioner
DX: I82.442 Acute embolism and thrombosis of left tibial vein (principal); I10 Essential (primary) hypertension; G51.0 Bell's palsy; I25.10 Atherosclerotic heart disease of native coronary artery without angina pectoris; R73.03 Prediabetes; F17.200 Nicotine dependence, unspecified, uncomplicated; Z86.718 Personal history of other venous thrombosis and embolism
CPT/HCPCS: J1650